=== PATIENT | female | born 1975 | race Caucasian/White ===

== ENCOUNTER → 2019-10-10 14:28 | Outpatient (CLI) | payer MEDICAID, SELFPAY ==
[2019-10-10 13:42] VITALS: BMI 29.7
[2019-10-10 15:39] LABS: Absolute Lymphocyte Count 2.81 X10^3/uL (0.83-4.51); Absolute Neutrophil Count 4.4 X10^3/uL (2.0-7.7); Basophil# 0.07 X10^3/uL; Basophil% 0.9 % (0-1); Eosinophil# 0.12 X10^3/uL; Eosinophils% 1.5 % (0-5); Hematocrit 44.8 % (37-47); Hemoglobin 14.7 g/dL (12.0-15.0); Lymphocyte # 2.81 X10^3/ul (4.0); Lymphocyte % 34.8 % (19-41); Mean Corp Hgb Conc 32.8 g/dL (32-36); Mean Corpuscular Hgb 29.3 pg (27.0-32.0); Mean Corpuscular Volume 89.4 fL (81-99); Mean Platelet Vol. 9.4 fl (6.2-12.0); Monocyte# 0.72 X10^3/uL; Monocyte% 8.9 % (0-10); NRBC Flagged by Analyzer 0 % (0-5); Neutrophil # 4.35 X10^3/uL (2.7-7.7); Neutrophil % 53.8 % (47-70); Platelet Count 314 K/mm3 (150-450); RBC Distribution Width CV 13.2 % (11.6-14.6); RBC Distribution Width SD 43.4 fl (35.1-43.9); Red Blood Count 5.01 M/mm3 (4.2-5.4); White Blood Count 8.1 K/mm3 (4.4-11.0)
[2019-10-10 15:58] LABS: AST(SGOT) 13 U/L (15-37); Alanine Aminotransfer ALT/SGPT 22 U/L (13-56); Albumin, Serum 4.2 g/dL (3.2-5.0); Alkaline Phosphatase 73 U/L (45-117); Anion Gap 6 (5-15); BUN 9 mg/dL (7-18); BUN/Creat Ratio 11.5 RATIO (10-20); Chloride 105 mmol/L (98-107); Cholesterol 250 mg/dL (200); Creatinine, Serum 0.78 mg/dL (0.55-1.02); EST Glomerular Filtration Rate 85 mL/min (>60); Est Glom Filt Rate - Afr Amer 103 mL/min (>60); Glucose 98 mg/dL (74-106); High Density Lipoprotein 57 mg/dL; Potassium 3.8 mmol/L (3.5-5.1); Protein, Total 8.2 g/dL (6.4-8.2); Sodium Level 137 mmol/L (136-145); Triglycerides 76 mg/dL; Very Low Density Lipoprotein 15 mg/dL (5-40)
== END ==
LOC: EPLAB 14:28 → BIMLAB 10-15 12:24
PROVIDERS: PCP Internal Medicine; Visit Provider Internal Medicine
DX: Z00.00 Encounter for general adult medical examination without abnormal findings (principal)
CPT/HCPCS: 36415; 80053; 80061; 85025

== ENCOUNTER → 2019-10-16 10:45 | Outpatient (CLI) | payer MEDICAID, SELFPAY ==
[2019-10-10 13:42] VITALS: BMI 29.7
--- NOTE | 2019-10-16 10:46 | BI_ITS ---
MAMMOGRAPHY - BILATERAL SCREENING REASON FOR EXAM: Female, 44 years old. Routine annual screening examination. PERTINENT HISTORY: Non-contributory. TECHNIQUE: Digital bilateral breast stephen (3D mammographic acquisition) in the CC and MLO projections. 2-D mediolateral oblique (MLO) and craniocaudad (CC) views of both breasts were obtained. CAD: Full Field Digital Mammography with Computer Added Detection was performed. COMPARISON: Comparison is made with prior outside examination dated May 14, 2017. FINDINGS: Breast Composition: The breasts are almost entirely fatty. There are no dominant masses or suspicious calcifications. No other significant abnormalities are identified. There has been no significant change since the prior study. BI/SCREEN MAMM (CAD) W/STEPHEN BILAT IMPRESSION: Stable bilateral screening mammogram. Yearly follow-up mammogram recommended. (A) ASSESSMENT CATEGORY: BIRADS Category 1: Negative. A letter regarding these results will be sent to the patient by the facility within 30 days. Approximately 10% of breast cancers are not detected by mammography. A normal mammogram should not delay biopsy of a clinically suspicious abnormality. [id number] Electronically Signed: Yoseph Michaels, at 11:16 EDT , Service support ,
== END ==
PROVIDERS: PCP Internal Medicine; Referring Provider Internal Medicine; Visit Provider Internal Medicine
DX: Z12.31 Encounter for screening mammogram for malignant neoplasm of breast (principal)
CPT/HCPCS: 77063; 77067

== ENCOUNTER → 2020-02-09 10:42 | Outpatient (CLI) | payer MEDICAID, SELFPAY ==
[2020-02-09 10:32] VITALS: BMI 29.7
[2020-02-09 13:11] LABS: T4 Free Direct 1.16 ng/dL (0.76-1.46); Thyroid Stim Hormone (TSH) 1.54 uIU/mL (0.358-3.74)
== END ==
PROVIDERS: PCP Internal Medicine; Referring Provider Internal Medicine; Visit Provider Internal Medicine
DX: E78.5 Hyperlipidemia, unspecified (principal)
CPT/HCPCS: 36415; 84439; 84443

== ENCOUNTER → 2020-03-01 17:09 | Outpatient (CLI) | payer MEDICAID, SELFPAY ==
[2020-03-01 15:26] VITALS: BMI 29.7
[2020-03-05 13:55] LABS: HPV APTIMA, High Risk Negative (Negative)
== END ==
PROVIDERS: PCP Internal Medicine; Referring Provider Obstetrics & Gynecology; Visit Provider Obstetrics & Gynecology
DX: Z12.4 Encounter for screening for malignant neoplasm of cervix (principal)
CPT/HCPCS: 87624; 88175; G0145

== ENCOUNTER → 2020-11-01 09:54 | Outpatient (CLI) | payer MEDICAID, SELFPAY ==
[2020-03-01 15:26] VITALS: BMI 29.7
--- NOTE | 2020-11-01 09:57 | BI_ITS ---
MAMMOGRAPHY - BILATERAL SCREENING REASON FOR EXAM: Female, 45 years old. Routine annual screening examination. PERTINENT HISTORY: Non-contributory. TECHNIQUE: Digital bilateral breast stephen (3D mammographic acquisition) in the CC and MLO projections. 2-D mediolateral oblique (MLO) and craniocaudad (CC) views of both breasts were obtained. CAD: Full Field Digital Mammography with Computer Added Detection was performed. COMPARISON: Comparison is made with prior study dated 10/16/2019. FINDINGS: Breast Composition: There are scattered areas of fibroglandular density. There are no dominant masses or suspicious calcifications. Stable benign-appearing bilateral axillary lymph nodes. No other significant abnormalities are identified. There has been no significant change since the prior study. BI/SCRN MAMM (CAD)W/STEPHEN BILAT IMPRESSION: Stable bilateral screening mammogram. Yearly follow-up mammogram recommended. (A) ASSESSMENT CATEGORY: BIRADS Category 2: Benign. A letter regarding these results will be sent to the patient by the facility within 30 days. Approximately 10% of breast cancers are not detected by mammography. A normal mammogram should not delay biopsy of a clinically suspicious abnormality. [id number] Electronically Signed: Yoseph Michaels MD at 11:15 EDT , Service support ,
== END ==
PROVIDERS: PCP Internal Medicine; Referring Provider Internal Medicine; Visit Provider Internal Medicine
DX: Z12.31 Encounter for screening mammogram for malignant neoplasm of breast (principal)
CPT/HCPCS: 77063; 77067

== ENCOUNTER → 2021-02-07 09:21 | Outpatient (CLI) | payer MEDICAID, SELFPAY ==
[2021-02-07 08:56] VITALS: BMI 29.7
[2021-02-07 12:18] LABS: Absolute Lymphocyte Count 2.25 X10^3/uL (0.83-4.51); Absolute Neutrophil Count 6.2 X10^3/uL (2.0-7.7); Basophil# 0.11 X10^3/uL; Basophil% 1.1 % (0-1); Eosinophil# 0.29 X10^3/uL; Hematocrit 43.3 % (37-47); Hemoglobin 14.2 g/dL (12.0-15.0); Lymphocyte # 2.25 X10^3/ul (0.83-4.51); Lymphocyte % 23.1 % (19-41); Mean Corp Hgb Conc 32.8 g/dL (32-36); Mean Corpuscular Hgb 29.2 pg (27.0-32.0); Mean Corpuscular Volume 88.9 fL (81-99); Monocyte# 0.92 X10^3/uL; Monocyte% 9.4 % (0-10); NRBC Flagged by Analyzer 0 % (0-5); Neutrophil # 6.15 X10^3/uL (2.7-7.7); Neutrophil % 63.2 % (47-70); Platelet Count 337 K/mm3 (150-450); RBC Distribution Width CV 13.9 % (11.6-14.6); RBC Distribution Width SD 45.4 fl (35.1-43.9); Red Blood Count 4.87 M/mm3 (4.2-5.4); White Blood Count 9.7 K/mm3 (4.4-11.0)
[2021-02-07 12:50] LABS: ALB/GLOB Ratio 0.9 RATIO (0.9-2.4); AST(SGOT) 16 U/L (15-37); Alanine Aminotransfer ALT/SGPT 22 U/L (13-56); Albumin, Serum 3.6 g/dL (3.2-5.0); Alkaline Phosphatase 76 U/L (45-117); Anion Gap 5 (5-15); BUN 14 mg/dL (7-18); BUN/Creat Ratio 17.6 RATIO (10-20); Calcium,Total 8.7 mg/dL (8.5-10.1); Chloride 107 mmol/L (98-107); Cholesterol 224 mg/dL (200); Creatinine, Serum 0.79 mg/dL (0.55-1.02); EST Glomerular Filtration Rate 83 mL/min (>60); Est Glom Filt Rate - Afr Amer 100 mL/min (>60); Glucose 92 mg/dL (74-106); High Density Lipoprotein 53 mg/dL; Potassium 3.9 mmol/L (3.5-5.1); Protein, Total 7.6 g/dL (6.4-8.2); Sodium Level 138 mmol/L (136-145); Triglycerides 201 mg/dL; Very Low Density Lipoprotein 40 mg/dL (5-40)
== END ==
PROVIDERS: PCP Internal Medicine; Referring Provider Internal Medicine; Visit Provider Internal Medicine
DX: E78.5 Hyperlipidemia, unspecified (principal); I10 Essential (primary) hypertension
CPT/HCPCS: 36415; 80053; 80061; 85025

== ENCOUNTER 2021-03-15 10:30 | Outpatient (RCR) | payer MEDICAID, SELFPAY ==
[2021-02-07 08:56] VITALS: BMI 29.7
== END 2021-03-15 23:59 ==
LOC: NS 10:30
PROVIDERS: PCP Internal Medicine; Visit Provider Internal Medicine
DX: Z71.3 Dietary counseling and surveillance (principal); E66.3 Overweight; Z68.29 Body mass index [BMI] 29.0-29.9, adult
CPT/HCPCS: 97802; 97803

== ENCOUNTER 2021-03-29 11:27 | Outpatient (RCR) | payer MEDICAID, SELFPAY ==
[2021-03-16 00:42] VITALS: BMI 29.7
== END 2021-04-14 23:59 ==
LOC: NS 11:27
PROVIDERS: PCP Internal Medicine; Visit Provider Internal Medicine
DX: Z71.3 Dietary counseling and surveillance (principal); E66.3 Overweight; Z68.29 Body mass index [BMI] 29.0-29.9, adult
CPT/HCPCS: 97803

== ENCOUNTER → 2021-12-05 | Outpatient (CLI) | payer MEDICAID, SELFPAY ==
[2021-12-05 12:43] LABS: Absolute Lymphocyte Count 2.38 X10^3/uL (0.83-4.51); Absolute Neutrophil Count 4.3 X10^3/uL (2.0-7.7); Basophil# 0.07 X10^3/uL; Basophil% 0.9 % (0-1); Eosinophil# 0.18 X10^3/uL; Eosinophils% 2.4 % (0-5); Hematocrit 42.8 % (37-47); Hemoglobin 14.1 g/dL (12.0-15.0); Lymphocyte # 2.38 X10^3/ul (0.83-4.51); Lymphocyte % 31.2 % (19-41); Mean Corp Hgb Conc 32.9 g/dL (32-36); Mean Corpuscular Hgb 30.1 pg (27.0-32.0); Mean Corpuscular Volume 91.3 fL (81-99); Mean Platelet Vol. 9.9 fl (6.2-12.0); Monocyte# 0.66 X10^3/uL; Monocyte% 8.6 % (0-10); NRBC Flagged by Analyzer 0 % (0-5); Neutrophil # 4.33 X10^3/uL (2.7-7.7); Neutrophil % 56.6 % (47-70); Platelet Count 344 K/mm3 (150-450); RBC Distribution Width CV 13.8 % (11.6-14.6); RBC Distribution Width SD 46.8 fl (35.1-43.9); Red Blood Count 4.69 M/mm3 (4.2-5.4); White Blood Count 7.6 K/mm3 (4.4-11.0)
[2021-12-05 13:00] LABS: AST(SGOT) 14 U/L (15-37); Alanine Aminotransfer ALT/SGPT 22 U/L (13-56); Albumin, Serum 3.7 g/dL (3.2-5.0); Alkaline Phosphatase 66 U/L (45-117); BUN 12 mg/dL (7-18); BUN/Creat Ratio 17.3 RATIO (10-20); Calcium,Total 8.5 mg/dL (8.5-10.1); Chloride 107 mmol/L (98-107); Cholesterol 210 mg/dL (200); EST Glomerular Filtration Rate 96 mL/min (>60); Est Glom Filt Rate - Afr Amer 117 mL/min (>60); Globulin 3.7 g/dL (2.2-4.2); Glucose 93 mg/dL (74-106); Potassium 3.9 mmol/L (3.5-5.1); Protein, Total 7.4 g/dL (6.4-8.2); Sodium Level 139 mmol/L (136-145); Triglycerides 111 mg/dL
[2021-12-05 13:01] LABS: Anion Gap 3 (5-15); High Density Lipoprotein 64 mg/dL; Very Low Density Lipoprotein 22 mg/dL (5-40)
== END | disposition home or self-care (01) ==
LOC: BIMLAB 09:36
PROVIDERS: PCP Internal Medicine; Referring Provider Internal Medicine; Visit Provider Internal Medicine
DX: E78.5 Hyperlipidemia, unspecified (principal); I10 Essential (primary) hypertension
CPT/HCPCS: 36415; 80053; 80061; 85025

== ENCOUNTER → 2021-12-19 | Outpatient (CLI) | payer MEDICAID, SELFPAY ==
--- NOTE | 2021-12-19 07:58 | BI_ITS ---
MAMMOGRAPHY - BILATERAL SCREENING REASON FOR EXAM: Female, 46 years old. Routine annual screening examination. PERTINENT HISTORY: Non-contributory. TECHNIQUE: Digital bilateral breast stephen (3D mammographic acquisition) in the CC and MLO projections. 2-D mediolateral oblique (MLO) and craniocaudad (CC) views of both breasts were obtained. CAD: Full Field Digital Mammography with Computer Added Detection was performed. COMPARISON: Comparison is made with prior study dated 11/01/2020 and 10/16/2019. FINDINGS: Breast Composition: There are scattered areas of fibroglandular density. There are no dominant masses or suspicious calcifications. Stable benign-appearing bilateral axillary lymph nodes. No other significant abnormalities are identified. There has been no significant change since the prior study. BI/SCRN MAMM (CAD)W/STEPHEN BILAT IMPRESSION: Stable bilateral screening mammogram. Yearly follow-up mammogram recommended. (A) ASSESSMENT CATEGORY: BIRADS Category 2: Benign. A letter regarding these results will be sent to the patient by the facility within 30 days. Approximately 10% of breast cancers are not detected by mammography. A normal mammogram should not delay biopsy of a clinically suspicious abnormality. [id number] Electronically Signed: Yoseph Michaels MD at 9:10 EDT ,
== END | disposition home or self-care (01) ==
LOC: OPBI 07:57
PROVIDERS: PCP Internal Medicine; Visit Provider Internal Medicine
DX: Z12.31 Encounter for screening mammogram for malignant neoplasm of breast (principal)
CPT/HCPCS: 77063; 77067

== ENCOUNTER → 2022-12-06 | Outpatient (CLI) | payer MEDICAID, SELFPAY ==
[2022-12-06 12:30] LABS: Absolute Lymphocyte Count 1.93 X10^3/uL (0.83-4.51); Absolute Neutrophil Count 5.5 X10^3/uL (2.0-7.7); Basophil# 0.06 X10^3/uL; Basophil% 0.7 % (0-1); Eosinophil# 0.11 X10^3/uL; Eosinophils% 1.3 % (0-5); Hematocrit 42.2 % (37-47); Hemoglobin 13.9 g/dL (12.0-15.0); Lymphocyte # 1.93 X10^3/ul (0.83-4.51); Lymphocyte % 23.1 % (19-41); Mean Corp Hgb Conc 32.9 g/dL (32-36); Mean Corpuscular Hgb 30.2 pg (27.0-32.0); Mean Corpuscular Volume 91.5 fL (81-99); Mean Platelet Vol. 9.5 fl (6.2-12.0); Monocyte# 0.76 X10^3/uL; Monocyte% 9.1 % (0-10); NRBC Flagged by Analyzer 0 % (0-5); Neutrophil # 5.46 X10^3/uL (2.7-7.7); Neutrophil % 65.6 % (47-70); Platelet Count 320 K/mm3 (150-450); RBC Distribution Width CV 14.3 % (11.6-14.6); Red Blood Count 4.61 M/mm3 (4.2-5.4); White Blood Count 8.3 K/mm3 (4.4-11.0)
[2022-12-06 13:04] LABS: AST(SGOT) 16 U/L (15-37); Alanine Aminotransfer ALT/SGPT 20 U/L (13-56); Albumin, Serum 3.6 g/dL (3.2-5.0); Alkaline Phosphatase 58 U/L (45-117); Anion Gap 6 (5-15); BUN 14 mg/dL (7-18); BUN/Creat Ratio 19.5 RATIO (10-20); Chloride 109 mmol/L (98-107); Cholesterol 214 mg/dL (200); Creatinine, Serum 0.72 mg/dL (0.55-1.02); EST Glomerular Filtration Rate 92 mL/min (>60); Est Glom Filt Rate - Afr Amer 112 mL/min (>60); Globulin 3.7 g/dL (2.2-4.2); Glucose 84 mg/dL (74-106); High Density Lipoprotein 70 mg/dL; Potassium 4.2 mmol/L (3.5-5.1); Protein, Total 7.3 g/dL (6.4-8.2); Sodium Level 140 mmol/L (136-145); Triglycerides 66 mg/dL; Very Low Density Lipoprotein 13 mg/dL (5-40)
== END | disposition home or self-care (01) ==
LOC: BIMLAB 09:23
PROVIDERS: PCP Internal Medicine; Referring Provider Internal Medicine; Visit Provider Internal Medicine
DX: I10 Essential (primary) hypertension (principal); E78.5 Hyperlipidemia, unspecified
CPT/HCPCS: 36415; 80053; 80061; 85025

== ENCOUNTER → 2022-12-20 | Outpatient (CLI) | payer MEDICAID, SELFPAY ==
--- NOTE | 2022-12-20 08:40 | BI_ITS ---
MAMMOGRAPHY - BILATERAL SCREENING REASON FOR EXAM: Female, 47 years old. Routine annual screening examination. PERTINENT HISTORY: Non-contributory. TECHNIQUE: Digital bilateral breast stephen (3D mammographic acquisition) in the CC and MLO projections. 2-D mediolateral oblique (MLO) and craniocaudad (CC) views of both breasts were obtained. CAD: Full Field Digital Mammography with Computer Added Detection was performed. COMPARISON: Comparison is made with prior study dated December 19, 2021 and November 01, 2020. FINDINGS: Breast Composition: The breasts are almost entirely fatty. There are no dominant masses or suspicious calcifications. No other significant abnormalities are identified. There has been no significant change since the prior study. BI/SCRN MAMM (CAD)W/STEPHEN BILAT IMPRESSION: Stable bilateral screening mammogram. Yearly follow-up mammogram recommended. (A) ASSESSMENT CATEGORY: BIRADS Category 1: Negative. A letter regarding these results will be sent to the patient by the facility within 30 days. Approximately 10% of breast cancers are not detected by mammography. A normal mammogram should not delay biopsy of a clinically suspicious abnormality. [id number] Electronically Signed: Yoseph Michaels MD at 9:37 EDT ,
== END | disposition home or self-care (01) ==
PROVIDERS: PCP Internal Medicine; Referring Provider Internal Medicine; Visit Provider Internal Medicine
DX: Z12.31 Encounter for screening mammogram for malignant neoplasm of breast (principal)
CPT/HCPCS: 77063; 77067

== ENCOUNTER 2023-06-21 05:49 | Day surgery (SDC) | payer MEDICAID, SELFPAY ==
[2023-06-21 06:14] LABS: Internal QC Validated? YES +Cl - CLEAR BKGD; Pregnancy, Urine Negative Negative
[2023-06-21] MEDS: Lactated Ringers 1,000 ML 15 ML IV (06:18)
[2023-06-21 06:20] VITALS: BP 112/73; PULSE 84; RESP 18; TEMP 36.4; O2SAT 99; BMI 25.9
--- NOTE | 2023-06-21 07:02 | PCM.HP.STD ---
[facility] - General General Date of Admission: 06/21/23 Date of Service: 06/21/23 Chief Complaint: Screening colonoscopy HPI Narrative MAIDA WYATT, is a 48 F who presents today for screening colonoscopy. She has never had a colonoscopy in the past. She does not have abdominal pain. She not have any nausea, vomiting or diarrhea. She has past medical history of mild hypertension and mild hyperlipidemia. Otherwise she is in very good health. She does have a family history of colon cancer. [facility] Medical History (Updated 06/18/23 @ 09:58 by Myles Briceno) Abnormal Pap smear of cervix Colon cancer screening Essential hypertension Fracture of finger of left hand Frequent sinus infections Hyperlipidemia Overweight (BMI 25.0-29.9) Smoker Tobacco abuse Vision problems Wears glasses Home Medications loratadine 10 mg tablet 10 mg PO DAILY 09/29/19 [History Last Taken Unknown] multivitamin,[id number] (Complete Multivitamin tablet) 1 tab PO DAILY 03/01/20 [History Last Taken Unknown] Allergy/AdvReac Type Severity Reaction Status Date / Time No Known Allergies Allergy Verified 06/18/23 09:50 Family History (Updated 06/05/23 @ 13:56 by Verna Tabares) Mother Cancer lung,uterine Anxiety Depression Diabetes Hypertension CVA (cerebral vascular accident) Uterine cancer 30s Father Hypertension Grandfather Cancer Myocardial infarction Heart disease Colon cancer Surgical History H/O LEEP History of knee surgery History of tonsillectomy Social History Smoking Status: Current every day smoker tobacco type: cigarettes alcohol intake: current alcohol intake frequency: holidays/special occasions only details: socially substance use type: does not use caffeine: Yes what type of physical activity do you participate in: walking, aerobics and weight training frequency: 3-4 times per week seatbelt use: always do you feel safe at home: Yes additional social history: [employer] ROS Review of Systems ROS Unobtainable: other Constitutional Constitutional: Denies fatigue, fever(s), poor appetite, weight gain or weight loss ENT HEENT: Denies mouth lesions Cardiovascular Cardiovascular: Denies abdominal bloating, abdominal edema or abdominal pain Respiratory/Chest Respiratory/Chest: Denies change in mental status, change in phlegm color, chest congestion or chest tightness Gastrointestinal Gastrointestinal: Denies belching, bloating, change in bowel habits, change in stool character, chewing difficulty, coffee ground emesis, constipation, cramping, diarrhea, dyspepsia, dysphagia, early satiety, excessive flatus, fecal incontinence, heartburn, hematemesis, hematochezia, hemorrhoids, loose stools, melena, nausea, odynophagia, rectal bleeding, tenesmus, vomiting or weight changes Genitourinary Genitourinary: Denies abdominal discomfort, burning urination or itching Musculoskeletal Musculoskeletal: Reports as per HPI; Denies muscle weakness or myalgias Integumentary Integumentary: Denies jaundice Neurologic Neurologic: Denies lack of coordination or weakness Psychiatric Psychiatric: Denies confusion, depression, memory loss, mood swings, paranoia or suicidal ideation Endocrine Endocrinology: Denies systems reviewed and no addt'l complaints, except as documented Hematologic/Lymphatic Hematologic/Lymphatic: Denies anemia, easy bleeding, easy bruising or lymphadenopathy Allergic/Immunologic Allergic/Immunologic: Denies systems reviewed and no addt'l complaints, except as documented Vital Signs Vital Signs Vital Signs: 06/21/23 06:20 06/21/23 06:20 Temperature 97.6 F L Temperature Source Temporal Pulse Rate 84 Respiratory Rate 18 Respiratory Pattern Normal Blood Pressure 112/73 Blood Pressure Mean 86 Blood Pressure Source Monitor Blood Pressure Position Sitting Pulse Ox 99 Oxygen Delivery Method Room Air Weight Weight: 151 lb 6.4 oz Body Mass Index (BMI) 25.9 Physical Exam Const alert General Appearance: cooperative Orientation / Consciousness: oriented to person HEENT hearing grossly normal bilaterally Head and Scalp: normal to inspection Face and Sinus: face symmetric Nose: external nose normal Mouth: oral and palatal mucosa normal Eyes conjunctivae normal General Eye: normal appearance of both eyes Neck full ROM General: normal visual inspection Lymph Lymphatic: no lymphadenopathy noted Chest inspection of chest normal and palpation of chest normal Chest: symmetrical chest wall rise Resp normal respiratory effort Effort and Inspection: able to speak in complete sentences Cardio regular rate GI non-distended Percussion: normal to percussion Rectal Exam: deferred Neuro Speech: speech normal Gait (Neuro): normal gait Results Lab / Micro Data Labs: Laboratory Results - last 24 hr 06/21/23 05:58: Urine Test Negative Assessment & Plan Assessment/Plan (1) Encounter for screening for malignant neoplasm of colon: PLAN: She was explained alternatives, risk, benefits including not withstanding bleeding, infection, sepsis, perforation, need for emergent surgery and . She will have an ASA of 2.
[2023-06-21 07:40] VITALS: BP 112/73; BP 116/97; PULSE 84; RESP 16; TEMP 36.2; O2SAT 100
--- NOTE | 2023-06-21 07:42 | OP.COLON_ITS ---
Patient Name: Rosy Henley Procedure Date: 06/21/2023 7:09 AM Date of : 1975 Age: 48 Procedure: Colonoscopy Indications: Screening for colorectal malignant neoplasm Providers: Edinson Finley DO Referring MD: Edinson Finley DO Medicines: Monitored Anesthesia Care Patient Profile: This is a 48 year old female. Refer to note in patient chart for documentation of history and physical. Last Colonoscopy: none. The patient's first colonoscopy is today. Complications: No immediate complications. Procedure: Pre-Anesthesia Assessment: - Prior to the procedure, a History and Physical was performed, and patient medications and allergies were reviewed. The patient is competent. The risks and benefits of the procedure and the sedation options and risks were discussed with the patient. All questions were answered and informed consent was obtained. Patient identification and proposed procedure were verified by the physician. Mental Status Examination: normal. Prophylactic Antibiotics: The patient does not require prophylactic antibiotics. Prior Anticoagulants: The patient has taken no anticoagulant or antiplatelet agents. ASA Grade Assessment: II - A patient with mild systemic disease. After reviewing the risks and benefits, the patient was deemed in satisfactory condition to undergo the procedure. The anesthesia plan was to use monitored anesthesia care (MAC). Immediately prior to administration of medications, the patient was re-assessed for adequacy to receive sedatives. The heart rate, respiratory rate, oxygen saturations, blood pressure, adequacy of pulmonary ventilation, and response to care were monitored throughout the procedure. The physical status of the patient was re-assessed after the procedure. After I obtained informed consent, the scope was passed under direct vision. Throughout the procedure, the patient's blood pressure, pulse, and oxygen saturations were monitored continuously. The colonoscope was introduced through the anus and advanced to the cecum, identified by appendiceal orifice and ileocecal valve. The colonoscopy was performed without difficulty. The patient tolerated the procedure well. The quality of the bowel preparation was adequate. The ileocecal valve, appendiceal orifice, and rectum were photographed. Scope In: 7:21:56 AM Scope Withdrawal Time 0 hours 7 minutes 40 seconds Scope Out: 7:36:10 AM Total Procedure Duration Time 0 hours 14 minutes 14 seconds Findings: The perianal and digital rectal examinations were normal. The colon (entire examined portion) appeared normal. No additional abnormalities were found on retroflexion. Impression: - The entire examined colon is normal. - No specimens collected. Recommendation: - Discharge patient to home. - Resume previous diet. - Continue present medications. - Repeat colonoscopy in 10 years for screening purposes. Procedure Code(s): --- Professional --- G0121, Colorectal cancer screening; colonoscopy on individual not meeting criteria for high risk CPT copyright 2021 [employer]. All rights reserved. The codes documented in this report are preliminary and upon collar setter overlock review may be revised to meet current compliance requirements. Edinson Finley DO 06/21/2023 7:41:21 AM This report has been signed electronically. Number of Addenda: 0 Note Initiated On: 06/21/2023 7:09 AM
--- NOTE | 2023-06-21 07:42 | OP.CCLET_ITS ---
06/21/2023 Melisa Barfield MD [address] [place] [address] [place] [address] Re : Colonoscopy procedure for Rosy Amend Dear Dr. Barfield This procedure was performed on June. My impressions and recommendations are as follows: Impressions : - The entire examined colon is normal. - No specimens collected. Recommendations : - Discharge patient to home. - Resume previous diet. - Continue present medications. - Repeat colonoscopy in 10 years for screening purposes. My findings are described in the full procedure note, which is enclosed. If I can be of further assistance, please feel free to contact me at . Sincerely, Edinson Finley, 06/21/2023 7:41:21 AM This report has been signed electronically.
[2023-06-21 07:45] VITALS: BP 112/73; BP 113/77; PULSE 78; RESP 16; O2SAT 100
[2023-06-21 07:50] VITALS: BP 110/72; BP 112/73; PULSE 69; RESP 16; TEMP 36.1; O2SAT 100
[2023-06-21 08:04] VITALS: BP 112/73
== END 2023-06-21 08:11 | disposition home or self-care (01) ==
LOC: EN 05:50 → AC 06:08
PROVIDERS: Anesthesiology; PCP Internal Medicine; Referring Provider Internal Medicine; Visit Provider Internal Medicine Gastroenterology
PROC: 0DJD8ZZ Inspection of Lower Intestinal Tract, Via Natural or Artificial Opening Endoscopic (ICD-10-PCS; CPT 45378; principal; 2023-06-21 06:55)
DX: Z12.11 Encounter for screening for malignant neoplasm of colon (principal); I10 Essential (primary) hypertension; E78.5 Hyperlipidemia, unspecified; F17.210 Nicotine dependence, cigarettes, uncomplicated; Z80.0 Family history of malignant neoplasm of digestive organs
CPT/HCPCS: G0121; 81025; J7120

== ENCOUNTER → 2024-02-01 | Outpatient (CLI) | payer MEDICAID, SELFPAY ==
[2024-02-01 12:24] LABS: Absolute Lymphocyte Count 3.49 X10^3/uL (0.83-4.51); Absolute Neutrophil Count 3.9 X10^3/uL (2.0-7.7); Basophil# 0.09 X10^3/uL; Basophil% 1.1 % (0-1); Eosinophil# 0.13 X10^3/uL; Eosinophils% 1.6 % (0-5); Hematocrit 44.3 % (37-47); Hemoglobin 14.6 g/dL (12.0-15.0); Lymphocyte # 3.49 X10^3/ul (0.83-4.51); Mean Corpuscular Hgb 29.3 pg (27.0-32.0); Mean Platelet Vol. 9.8 fl (6.2-12.0); Monocyte# 0.72 X10^3/uL; Monocyte% 8.7 % (0-10); NRBC Flagged by Analyzer 0 % (0-5); Neutrophil # 3.86 X10^3/uL (2.7-7.7); Neutrophil % 46.4 % (47-70); Platelet Count 319 K/mm3 (150-450); RBC Distribution Width CV 13.9 % (11.6-14.6); RBC Distribution Width SD 45.1 fl (35.1-43.9); Red Blood Count 4.98 M/mm3 (4.2-5.4); White Blood Count 8.3 K/mm3 (4.4-11.0)
[2024-02-01 12:37] LABS: ALB/GLOB Ratio 0.9 RATIO (0.9-2.4); AST(SGOT) 27 U/L (15-37); Alanine Aminotransfer ALT/SGPT 36 U/L (13-56); Albumin, Serum 3.7 g/dL (3.2-5.0); Alkaline Phosphatase 79 U/L (45-117); Anion Gap 7 (5-15); BUN 14 mg/dL (7-18); BUN/Creat Ratio 18.1 RATIO (10-20); Calcium,Total 9.2 mg/dL (8.5-10.1); Chloride 106 mmol/L (98-107); Cholesterol 228 mg/dL (200); Creatinine, Serum 0.77 mg/dL (0.55-1.02); EST Glomerular Filtration Rate 85 mL/min (>60); Est Glom Filt Rate - Afr Amer 102 mL/min (>60); Globulin 4.3 g/dL (2.2-4.2); Glucose 95 mg/dL (74-106); High Density Lipoprotein 69 mg/dL; Potassium 4.1 mmol/L (3.5-5.1); Sodium Level 140 mmol/L (136-145); Triglycerides 132 mg/dL; Very Low Density Lipoprotein 26 mg/dL (5-40)
== END | disposition home or self-care (01) ==
LOC: BIMLAB 10:35
PROVIDERS: PCP Internal Medicine; Referring Provider Internal Medicine; Visit Provider Internal Medicine
DX: Z00.00 Encounter for general adult medical examination without abnormal findings (principal)
CPT/HCPCS: 36415; 80053; 80061; 85025

== ENCOUNTER → 2024-02-14 | Outpatient (CLI) | payer MEDICAID, SELFPAY ==
--- NOTE | 2024-02-14 08:12 | BI_ITS ---
MAMMOGRAPHY - BILATERAL SCREENING REASON FOR EXAM: Female, 48 years old. Routine annual screening examination. PERTINENT HISTORY: Non-contributory. TECHNIQUE: Digital bilateral breast stephen (3D mammographic acquisition) in the CC and MLO projections. 2-D mediolateral oblique (MLO) and craniocaudad (CC) views of both breasts were obtained. CAD: Full Field Digital Mammography with Computer Added Detection was performed. COMPARISON: Comparison is made with prior study of December 20, 2022 and December 19, 2021. FINDINGS: Breast Composition: The breasts are almost entirely fatty. There are no dominant masses or suspicious calcifications. Stable fat-containing bilateral axillary lymph nodes. No other significant abnormalities are identified. There has been no significant change since the prior study. BI/SCRN MAMM (CAD)W/STEPHEN BILAT IMPRESSION: Stable bilateral screening mammogram. Yearly follow-up mammogram recommended. (A) ASSESSMENT CATEGORY: BIRADS Category 2: Benign. A letter regarding these results will be sent to the patient by the facility within 30 days. Approximately 10% of breast cancers are not detected by mammography. A normal mammogram should not delay biopsy of a clinically suspicious abnormality. [id number] Electronically Signed: Yoseph Michaels MD at 9:34 EDT ,
== END | disposition home or self-care (01) ==
LOC: OPBI 08:12
PROVIDERS: PCP Internal Medicine; Referring Provider Internal Medicine; Visit Provider Internal Medicine
DX: Z12.31 Encounter for screening mammogram for malignant neoplasm of breast (principal)
CPT/HCPCS: 77063; 77067

== ENCOUNTER → 2025-02-10 | Outpatient (CLI) | payer OTHER, MEDICAID, SELFPAY ==
[2025-02-13 16:09] LABS: HPV APTIMA, High Risk Negative (Negative)
== END | disposition home or self-care (01) ==
LOC: LABSPEC 15:41
PROVIDERS: PCP Internal Medicine; Visit Provider Nurse Practitioner Women's Health
DX: Z12.4 Encounter for screening for malignant neoplasm of cervix (principal)
CPT/HCPCS: 87624; 88175; G0145

== ENCOUNTER → 2025-02-16 | Outpatient (CLI) | payer OTHER, MEDICAID, SELFPAY ==
--- NOTE | 2025-02-16 14:45 | BI_ITS ---
EXAM: SCRN MAMM (CAD)W/STEPHEN BILAT DATE: 02/16/2025 CLINICAL HISTORY: F, Age 49 y/o , SCREEN FOR BREAST CANCER TECHNIQUE: SCRN MAMM (CAD)W/STEPHEN BILAT COMPARISON: Prior exam(s) were compared FINDINGS: TISSUE DENSITY: The breasts are heterogeneously dense, which may obscure small masses. Bilateral Breast Mammographic Findings: No suspicious masses, calcifications or other abnormalities are identified. BI/SCRN MAMM (CAD)W/STEPHEN BILAT IMPRESSION: No mammographic evidence of malignancy in either breast. OVERALL FINAL ASSESSMENT BI-RADS 1: NEGATIVE. RECOMMENDATION: Routine annual follow-up in 1 Year A letter with findings and recommendations will be mailed to the patient. Reading Location: [id number]
== END | disposition home or self-care (01) ==
PROVIDERS: PCP Internal Medicine; Referring Provider Nurse Practitioner Women's Health; Visit Provider Nurse Practitioner Women's Health
DX: Z12.31 Encounter for screening mammogram for malignant neoplasm of breast (principal)
CPT/HCPCS: 77063; 77067

== ENCOUNTER → 2025-02-18 | Outpatient (CLI) | payer OTHER, MEDICAID, SELFPAY ==
[2025-02-18 15:38] LABS: Hematocrit 40.3 % (37-47); Hemoglobin 13.2 g/dL (12.0-15.0); Immature Granulocytes Count 0.020 X10^3/uL (0.0-0.0); Mean Corp Hgb Conc 32.8 g/dL (32-36); Mean Corpuscular Volume 90.6 fL (81-99); Mean Platelet Vol. 9.6 fl (6.2-12.0); NRBC Flagged by Analyzer 0 % (0-5); Platelet Count 308 K/mm3 (150-450); RBC Distribution Width CV 13.4 % (11.6-14.6); RBC Distribution Width SD 44.9 fl (35.1-43.9); Red Blood Count 4.45 M/mm3 (4.2-5.4); White Blood Count 9.3 K/mm3 (4.4-11.0)
[2025-02-18 16:02] LABS: AST(SGOT) 19 U/L (<=31); Alanine Aminotransfer ALT/SGPT 21 U/L (<=34); Albumin, Serum 4.3 g/dL (3.5-5.0); Alkaline Phosphatase 60 U/L (35-104); Anion Gap 12 (5-15); BUN 12 mg/dL (4-19); BUN/Creat Ratio 16.2 RATIO (10-20); Calcium,Total 9.6 mg/dL (7.6-11.0); Carbon Dioxide 25.4 mmol/L (21.0-32.0); Chloride 102 mmol/L (98-108); Cholesterol 217 mg/dL (<=200); Globulin 3.0 g/dL (2.2-4.2); Glucose 92 mg/dL (70-99); Low Density Lipoprotein Calc. 126 mg/dL; Potassium 4.2 mmol/L (3.3-5.1); Triglycerides 92 mg/dL; Very Low Density Lipoprotein 18 mg/dL (5-40); cholesterol:hdl ratio screen 2.97
--- OUTSIDE RECORDS SUMMARY | 2025-02-18 17:06 | XMS RPT_ITS | CCD ---
Author Organization [facility] Care Team Providers Care Branch Sales And Service Representative Name Role Phone Provider, External Unavailable [phone] Melisa Barfield Primary Care Provider Janette Redd Unavailable Unavailable Marlo Cat Unavailable Dr. Melisa Barfield Primary Care Provider [phone] Dr. Melisa Barfield Attending Provider [phone] Dr. Melisa Barfield Referring Provider [phone] Dr. Melisa Barfield Primary Care Provider [phone] Dr. Melisa Barfield Attending Provider [phone] Dr. Melisa Barfield Referring Provider [phone] Dr. Melisa Barfield Primary Care Provider [phone] Verna Tabares Attending Provider Unavailable Dr. Melisa Barfield Referring Provider [phone] Dr. Edinson Finley Attending Provider [phone] Dr. Edinson Finley Other Provider Dr. Melisa Barfield MD Primary Care Provider Dr. Melisa Barfield MD Referring Provider [phone] Radha PINEAPPLE PLANTATION MANAGER-CMalissa Attending Provider [phone] Ninoska CHOI-CMariam Attending Provider Melisa Barfield Referring Unavailable Melisa Barfield Primary Care Unavailable Mariam Xiao Attending Unavailable Melisa Barfield Referring Unavailable Melisa Barfield Primary Care Unavailable RadhaMalissa Attending Unavailable Lio Barfieldjuditgildardo Primary Care Unavailable Mariam Xiao Referring Unavailable Mariam Xiao Attending Unavailable Melisa Barfield Primary Care Unavailable Mariam Xiao Attending Unavailable Ninoska PINEAPPLE PLANTATION MANAGERNorbertoCMariam Referring Provider Carolyne BERNAL, Dr. Vincent Attending Provider Medications Current Medications Medication Drug Class(es) Dates Sig (Normalized) Sig (Original) loratadine 10 mg oral tablet (9 sources) Start: 09-29-2019 take 1 tablet by mouth once daily Loratadine 10 mg tablet Active 10 mg PO DAILY September 29, 2019 12:00am multivitamin,tx-iro n-minerals (5 sources) Start: 03-01-2020 take 1 tablet by mouth once daily multivitamin,tx-ir on-minerals Active 1 TABLET PO DAILY March 01, 2020 3:23pm Start: 03-01-2020 take 1 tablet by kenji th once daily multivitamin,md-nmvz-mviqhpxo Active 1 T ABLET PO DAILY February 29, 2020 11:00pm Start: 03-01-2020 take 1 tablet by kenji th once daily multivitamin,hw-wuae-hfkjnfpe Active 1 T ABLET PO DAILY March 01, 2020 12:00am Multivitamin,Mo-Avwy-Biigssb s (Complete Multivitamin) tablet (4 sources) Start: 03-01-2020 Multivitamin,Zs-Dmzm-Vetftxn s (Complete Multivitamin) tablet Active 1 {tbl} PO DAILY March 01, 2020 12:00am Completed/Discontinued Medications Medication Drug Class(es) Dates Sig (Normalized) Sig (Original) smoking cessation 12 hr buPROPion hydrochloride 150 mg extended release oral tablet (3 sources) Aminoketone Start: 12-22-2024 End: 02-10-2025 take 1 tablet by mouth twice daily Bupropion Hcl (Smoking Deter) 150 mg tablet extended release 12 hr Discontinued 150 mg PO TWICE A DAY 60 0 December 22, 2024 12:00am February 10, 2025 3:16pm Tobacco abuse Cigarette nicotine dependence with withdrawal Tobacco use Nicotine dependence, cigarettes, with withdrawal Start with 1 tab daily for 3 days, then increase to twice a day. Magnesium (4 sources) Start: 02-01-2024 End: 12-22-2024 take 1 tablet by mouth once daily as needed Magnesium 200 mg tablet Discontinued 200 mg PO DAILY as needed February 01, 2024 12:00am December 22, 2024 2:49pm Nicotine (9 sources) Cholinergic Nicotinic Agonist Start: 10-10-2019 End: 02-09-2020 apply 1 dose transdermal route every twenty-four hours Nicotine Discontinued 1 PATCH TD Q24H 56 October 10, 2019 2:20pm February 09, 2020 10:29am Start: 10-10-2019 End: 02-09-2020 Nicotine 21-14-7 mg/24 hr pa tch, TD daily, sequential Discontinued 1 NMA TD Q24H 56 0 October 10, 2019 12:00am February 09, 2020 10:29am Start: 10-10-2019 End: 02-09-2020 Nicotine 21-14-7 mg/24 hr pa tch, TD daily, sequential Discontinued 1 NMA TD Q24H 56 October 10, 2019 12:00am February 09, 2020 10:29am Start: 10-10-2019 End: 02-09-2020 apply 1 dose transdermal route every twenty-four hours Nicotine Discontinued 1 PATCH TD Q24H 56 October 09, 2019 11:00pm February 09, 2020 9:29am Start: 10-10-2019 End: 02-09-2020 apply 1 dose transdermal route every twenty-four hours Nicotine Discontinued 1 PATCH TD Q24H 56 October 10, 2019 12:00am February 09, 2020 10:29am Problems Problem Classification Problem Date Documented Da te Episodic/Chronic Blindness and vision defects (9 sources) Disorder of vision; Translations: [Unspecified visual loss] 11-05-2021 Chronic Disorders of lipid metabolism (11 sources) Hyperlipidemia; Translations: [Hyperlipidemia, unspecified] Chronic Essential hypertension (13 sources) Essential hypertension; Translations: [Essential (primary) hypertension] Chronic Fracture of upper limb (9 sources) Fracture of phalanx of finger; Translations: [Fracture of unspecified phalanx of unspecified finger, initial encounter for closed fracture] 11-05-2021 Episodic Menopausal disorders (5 sources) Menopausal syndrome; Translations: [Menopausal and female climacteric states] 01-31-2023 Chronic Other nutritional; endocrine; and metabolic disorders (9 sources) Body mass index 25-29 - overweight; Translations: [Overweight] 05-09-2021 Episodic Other screening for suspected conditions (not mental disorders or infectious disease) (9 sources) Patient encounter status; Translations: [Encounter for screening for malignant neoplasm of colon] Onset: 02-10-2025 12-06-2022 Episodic Other skin disorders (4 sources) Lesion of skin of face; Translations: [Disorder of the skin and subcutaneous tissue, unspecified] 08-06-2023 Episodic Residual codes; unclassified (1 source) Family history of malignant neoplasm of uterus; Translations: [Family history of uterine cancer] Episodic Residual codes; unclassified (9 sources) Family history of cancer of colon; Translations: [Family history of malignant neoplasm of digestive organs] 05-13-2020 Episodic Comment on above: Negative genetic jose ting Residual codes; unclassified (13 sources) Tobacco user; Translations: [Tobacco use] 05-09-2021 Episodic Comment on above: quit 12/2024 Residual codes; unclassified (2 sources) Tobacco use; Translations: [Tobacco use disorder] Episodic Substance-related disorders (8 sources) Tobacco dependence caused by cigarettes; Translations: [Nicotine dependence, cigarettes, with withdrawal] 12-22-2024 Chronic Results Test Name Value Interpretation Reference Range Facility Absolute lymphocyte countOrd ered By: Melisa Barfield on 02-18-2025 Lymphocytes Auto (Unsp spec) [#/Vol] 3.93 10*3/uL 0.83-4.51 [facility] Absolute neutrophil countOrd ered By: Melisa Barfield on 02-18-2025 Neutrophils (Bld) [#/Vol] 4.4 10*3/uL 2.0-7.7 [facility] Anion gap in Serum or Plasma Ordered By: Melisa Barfield on 02-18-2025 Anion gap [Moles/Vol] 12 mmol/L 5-15 [facility] Automated lymphocyte count a s percentage of total leukocytesOrdered By: Melisa Barfield on 02-18-2025 Lymphocytes/100 WBC Auto (Unsp spec) 42.5 % High 19-41 [facility] BUN/creatinine ratioOrdered By: Melisa Barfield on 02-18-2025 Urea nitrogen/Creatinine [Mass ratio] 16.2 mg/mg 10-20 [facility] Basophil percentageOrdered B y: Melisa Barfield on 02-18-2025 Basophils/100 WBC (Bld) 1.0 % 0-1 [facility] Bilirubin, totalOrdered By: Melisa Barfield on 02-18-2025 Bilirubin [Mass/Vol] 0.47 mg/dL 0.00-1.30 [facility] Calculated very low density lipoprotein (VLDL) cholesterol measurementOrdered By: Melisa Barfield on 02-18-2025 Calculated very low density lipoprotein (VLDL) cholesterol measurement 18 mg/dL 5-40 [facility] Carbon dioxide, total [Moles /volume] in Central venous bloodOrdered By: Melisa Barfield on 02-18-2025 CO2 [Moles/Vol] 25.4 mmol/L 21.0-32.0 [facility] Chloride assayOrdered By: Lio Barfield on 02-18-2025 Chloride [Moles/Vol] 102 mmol/L 98-108 [facility] Eosinophil percentageOrdered By: Melisa Barfield on 02-18-2025 Eosinophils/100 WBC (Bld) 0.9 % 0-5 [facility] Erythrocyte distribution wid th ratioOrdered By: Melisa Barfield on 02-18-2025 Erythrocyte distribution width (RBC) [Ratio] 13.4 % 11.6-14.6 [facility] Erythrocyte distribution wid th standard deviationOrdered By: Melisa Barfield on 02-18-2025 Erythrocyte distribution width (RBC) [Ratio] 44.9 fl High 35.1-43.9 [facility] Glomerular filtration rate ( GFR) estimation/1.73 sq m using serum, plasma, or whole bOrdered By: Melisa Barfield on 02-18-2025 GFR/1.73 sq M.predicted among non-blacks MDRD (S/P/Bld) [Vol rate/Area] 99 mL/min/{1.73_m2} >60 [facility] Comment on above: mL/min/1.73m2 CKD-EP I Creatinine Equation (2020) Hematocrit Auto (Bld) [Volum e fraction]Ordered By: Melisa Barfield on 02-18-2025 Hematocrit (Bld) [Volume fraction] 40.3 % 37-47 [facility] Hemoglobin measurementOrdere d By: Melisa Barfield on 02-18-2025 Hemoglobin (Bld) [Mass/Vol] 13.2 g/dL 12.0-15.0 [facility] Immature granulocytes/100 WB C Auto (Bld)Ordered By: Melisa Barfield on 02-18-2025 Immature granulocytes/100 WBC (Bld) 0.200 % 0.0-0.9 [facility] Comment on above: IG% - Immature Granu locytes (promyelocytes, myelocytes and metamyelocytes) > 1% indicates that a LEFT SHIFT is Present. LDL calc ser/plasOrdered By: Melisa Barfield on 02-18-2025 Cholesterol in LDL [Mass/Vol] 126 mg/dL [facility] Comment on above: Wmdtfwmthy=159-654 m g/dL & Higher Nkpg=299 mg/dL or greaterFriedwald Equation for LDL-C Laboratory - Chemistry and C hemistry - challengeOrdered By: Melisa Barfield on 02-18-2025 AST [Catalytic activity/Vol] 19 U/L <32 [facility] MCV (mean corpuscular volume ) determinationOrdered By: Melisa Barfield on 02-18-2025 MCV (RBC) [Entitic vol] 90.6 fL 81-99 [facility] Mean corpuscular hemoglobin (MCH) determinationOrdered By: Melisa Barfield on 02-18-2025 MCH (RBC) [Entitic mass] 29.7 pg 27.0-32.0 [facility] Mean corpuscular hemoglobin concentration (MCHC) determinationOrdered By: Melisa Barfield on 02-18-2025 MCHC (RBC) [Mass/Vol] 32.8 g/dL 32-36 [facility] Mean platelet volume determi nationOrdered By: Melisa Barfield on 02-18-2025 Platelet mean volume (Bld) [Entitic vol] 9.6 fL 6.2-12.0 [facility] Monocyte percentageOrdered B y: Melisa Barfield on 02-18-2025 Monocytes/100 WBC (Bld) 7.7 % 0-10 [facility] Neutrophil percentageOrdered By: Melisa Barfield on 02-18-2025 Neutrophils/100 WBC (Bld) 47.7 % 47-70 [facility] Nucleated red blood cell per centageOrdered By: Melisa Barfield on 02-18-2025 Nucleated RBC/100 WBC (Bld) [Ratio] 0 % 0-5 [facility] Platelet countOrdered By: Lio Barfield on 02-18-2025 Platelets (Bld) [#/Vol] 308 10*3/uL 150-450 [facility] Potassium measurement (mass/ volume)Ordered By: Melisa Barfield on 02-18-2025 Potassium (Unsp spec) [Mass/Vol] 4.2 mmol/L 3.3-5.1 [facility] RBC Auto (Bld) [#/Vol]Ordere d By: Melisa Barfield on 02-18-2025 RBC (Bld) [#/Vol] 4.45 10*6/uL 4.2-5.4 [facility] Screening total cholesterol/ high density lipoprotein (HDL) cholesterol ratioOrdered By: Melisa Barfield on 02-18-2025 Cholesterol.total/Choles terol in HDL [Mass ratio] 2.97 {ratio} [facility] Serum creatinine measurement (mass/volume)Ordered By: Melisa Barfield on 02-18-2025 Creatinine [Mass/Vol] 0.74 mg/dL 0.70-1.20 [facility] Serum globulin measurementOr dered By: Melisa Barfield on 02-18-2025 Globulin (S) [Mass/Vol] 3.0 g/dL 2.2-4.2 [facility] Serum glucose measurement (m ass/volume)Ordered By: Melisa Barfield on 02-18-2025 Glucose [Mass/Vol] 92 mg/dL 70-99 [facility] Serum or plasma alanine zayas otransferase (ALT) measurementOrdered By: Melisa Barifeld on 02-18-2025 ALT [Catalytic activity/Vol] 21 U/L <35 [facility] Serum or plasma albumin shannon urement (mass/volume)Ordered By: Melisa Barfield on 02-18-2025 Albumin [Mass/Vol] 4.3 g/dL 3.5-5.0 [facility] Serum or plasma albumin/glob ulin mass ratioOrdered By: Melisa Barfield on 02-18-2025 Albumin/Globulin [Mass ratio] 1.4 {ratio} 0.9-2.4 [facility] Serum or plasma alkaline ryan sphatase measurementOrdered By: Melisa Barfield on 02-18-2025 ALP [Catalytic activity/Vol] 60 U/L 35-104 [facility] Serum or plasma calcium shannon urement (mass/volume)Ordered By: Melisa Barfield 02-18-2025 Calcium [Mass/Vol] 9.6 mg/dL 7.6-11.0 [facility] Serum or plasma cholesterol in HDL measurement (mass/volume)Ordered By: Melisa Barfield on 02-18-2025 Cholesterol in HDL [Mass/Vol] 73 mg/dL >40 [facility] Comment on above: National Cholesterol Education Program (NCEP) guidelines:<40 mg/dL: Low HDL-cholesterol (major risk factor for CHD)>= 60 mg/dL: High HDL-cholesterol (negative risk factor for CHD)HDL-cholesterol is affected by a number of factors, e.g. smoking, exercise, hormones, sex and age. Serum or plasma cholesterol measurement (mass/volume)Ordered By: Melisa Barfield on 02-18-2025 Cholesterol [Mass/Vol] 217 mg/dL High <201 [facility] Comment on above: Cholesterol level, D esirable <200 mg/dLBorderline high cholesterol 200-239 mg/dLHigh cholesterol >=240 mg/dLRecommendations of the NCEP Adult Treatment Panel for the following risk-cutoff thresholds for the [place] population. Serum or plasma urea nitroge n measurement (mass/volume)Ordered By: Melisa Barfield on 02-18-2025 Urea nitrogen [Mass/Vol] 12 mg/dL 4-19 [facility] Sodium levelOrdered By: Marilia Barfield on 02-18-2025 Sodium [Moles/Vol] 140 mmol/L 133-145 [facility] Total proteinOrdered By: Pj Barfield on 02-18-2025 Protein [Mass/Vol] 7.4 g/dL 5.9-8.4 [facility] Triglycerides measurementOrd ered By: Melisa Barfield on 02-18-2025 Triglyceride [Mass/Vol] 92 mg/dL <199 [facility] Comment on above: The drugs N-Acetylcy steine and Metamizole may falsely depress this assay. Normal range: <150 mg/dLBorderline High: 150-199 mg/dLHigh: 200-499 mg/dLVery High: >500 mg/dL White blood cell (WBC) count Ordered By: Melisa Barfield on 02-18-2025 WBC (Bld) [#/Vol] 9.3 10*3/uL 4.4-11.0 [facility] PAP IG HPV APTIMA 16/18,45on 02-13-2025 ADEQ Comment Normal . [facility] Comment on above: Order Comment: Speci men Comment: [id number] Specimen Comment: No. of containers..01 ThinPrep Vial Result Comment: Sati sfactory for evaluation. Endocervical and/or squamous metaplastic cells (endocervical component) are present. Performed By: #### L 7400.0280 #### [facility] [address] [place], [place], [id number] COMM . Normal . [facility] Comment on above: Order Comment: Speci men Comment: [id number] Specimen Comment: No. of containers..01 ThinPrep Vial Performed By: #### L 7400.0280 #### [facility] [address] [place], [place], [id number] COMMENT Comment Normal . [facility] Comment on above: Order Comment: Speci men Comment: [id number] Specimen Comment: No. of containers..01 ThinPrep Vial Result Comment: This liquid based ThinPrep(R) pap test was screened with the use of an image guided system. Performed By: #### L 7400.0280 #### [facility] [address] [place], [place], [id number] DIAG Comment Normal . [facility] Comment on above: Order Comment: Speci men Comment: [id number] Specimen Comment: No. of containers..01 ThinPrep Vial Result Comment: NEGA TIVE FOR INTRAEPITHELIAL LESION OR MALIGNANCY. CELLULAR CHANGES ASSOCIATED WITH INFLAMMATION ARE PRESENT. Performed By: #### L 7400.0280 #### [facility] [address] [place], [address] HPV APTIMA, HR Negative Normal Negative [facility] Comment on above: Order Comment: Speci men Comment: [id number] Specimen Comment: No. of containers..01 ThinPrep Vial Result Comment: This nucleic acid amplification test detects fourteen high- risk HPV types (16,18,31,33,35,39,45,51,52,56,58,59,66,68) without differentiation. Performed By: #### L 7400.0280 #### [facility] [address] [place], [place], [id number] ([address] HPV Dominga Rfx Comment Normal . [facility] Comment on above: Order Comment: Speci men Comment: [id number] Specimen Comment: No. of containers..01 ThinPrep Vial Result Comment: Crit eria not met, HPV Genotype not performed. Performed at: [address] [id number] [place] Hand: Elda Calle MD, Phone: [phone] Performed at: = - [address] [id number] [place] Hand: Elda Calle MD, Phone: [phone] Performed By: #### L 7400.0280 #### [facility] [address] [place], [place], [address] ([address] PAPSMR Comment Normal . [facility] Comment on above: Order Comment: Speci men Comment: [id number] Specimen Comment: No. of containers..01 ThinPrep Vial Result Comment: The Pap smear is a screening test designed to aid in the detection of premalignant and malignant conditions of the uterine cervix. It is not a diagnostic procedure and should not be used as the sole means of detecting cervical cancer. Both false-positive and false-negative reports do occur. Performed By: #### L 7400.0280 #### [facility] [address] [place], [place], [id number] PERFORM Comment Normal . [facility] Comment on above: Order Comment: Speci men Comment: [id number] Specimen Comment: No. of containers..01 ThinPrep Vial Result Comment: Macarena Martínez, Transfer Operator (ASCP) Performed By: #### L 7400.0280 #### [facility] [address] [place], [place], [address] Cervical or vaginal specimen microscopic examination by liquid based cytology (reportOrdered By: Maraim Xiao on 02-10-2025 Cytology report Cyto stain.thin prep Doc (Cvx/Vag) Comment . [facility] Comment on above: Criteria not met, HP V Genotype not performed.Performed at: - [address] [id number] Director: Elda Calle MD, Phone: [phone] at: = - [facility] [id number] Director: Elda Calle MD, Phone: [phone] Cervical or vagninal specime n microscopic examination by cytology stain (reported asOrdered By: Mariam Xiao on 02-10-2025 Cytology report Cyto stain Doc (Cvx/Vag) Comment . [facility] Comment on above: The Pap smear is a s creening test designed to aid in thedetection of premalignant and malignant conditions of theuterine cervix. It is not a diagnostic procedure andshould not be used as the sole means of detecting cervicalcancer. Both false-positive and false-negative reports dooccur. Detection in cervical specim en of any of human papilloma virus (HPV) 16, 18, 31, 33,Ordered By: Mariam Xiao on 02-10-2025 HPV 16+18+31+33+35+39+45+51+ 52+56+58+59+66+68 DNA Probe+sig amp Ql (Cvx) Negative Negative [facility] Comment on above: This nucleic acid am plification test detects fourteen high-risk HPV types (16,18,31,33,35,39,45,51,52,56,58,59,66,68)without differentiation. Laboratory - CytologyOrdered By: Mariam Xiao on 02-10-2025 Transfer Operator Cyto stain Nom (Cvx/Vag) [ID] Comment . [facility] Comment on above: Maida Martínez, Transfer Operator (ASCP) Laboratory - Miscellaneous t estsOrdered By: Mariam Xiao on 02-10-2025 Service comment (Unsp spec) [Interp] . . [facility] No Panel InformationOrdered By: Mariam Xiao on 02-10-2025 Pap Smear Specimen Adequacy Comment . [facility] Comment on above: Satisfactory for virgil luation. Endocervical and/or squamous metaplasticcells (endocervical component) are present. 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 Complaint: Annual 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 Required: No Is patient in pain?: No Allergies No Known Allergies Allergy (Verified 02/10/25 15:09) Medications ???Medication ???Instructions ???Recorded ???Confirmed ???Type loratadine 10 mg tablet 10 mg PO DAILY 09/29/19 02/10/25 H istory multivitamin,tx-iron -minerals 1 tab PO DAILY 03/01/20 02/10/25 H istory (Complete Multivitamin tablet) Is last menstrual period known: No Post menopausal: No Patient : No : No [facility] Medical History (Updated 02/10/25 @ 15:21 by Mariam Xiao PINEAPPLE PLANTATION MANAGER, PINEAPPLE PLANTATION MANAGER-C) Cigarette nicotine dependence with withdrawal Facial skin lesion Wears glasses Smoker Essential hypertension Tobacco abuse Hyperlipidemia Overweight (BMI 25.0-29.9) Abnormal Pap smear of cervix Frequent sinus infections Fracture of finger of left hand Vision problems Surgical History H/O LEEP History of tonsillectomy History of knee surgery Family History Mother Cancer lung,uterine Anxiety Depression Diabetes Hypertension CVA (cerebral vascular accident) Uterine cancer 30s Father Hypertension Grandfather Cancer Myocardial infarction Heart disease Colon cancer Social History Smoking Status: Current every day smoker tobacco type: cigarettes alcohol intake: current alcohol intake frequency: holidays/special occasions only details: socially substance use type: does not use caffeine: Yes what type of physical activity do you participate in: walking, aerobics and weight training frequency: 3-4 times per week seatbelt use: always do you feel safe at home: Yes additional social history: [employer] History 2 Elective abortions Hx Para 2 Spontaneous abortions Hx # Term Pregnancies Ectopic pregnancies Hx # Pregnancies Multiple births # of living children Past Pregnancies Del. Date Name GA/Weeks Outcome Route Bth Weight Gen Labor Lgth Anesthesia Del Locatn Provider FOB Unknown 1998 Geremias live - full term Unknown 2001 [facility] live - full term HPI Encounter for routine gynecological examination Details: MAIDA WYATT is a 49 year old who presents for annual exam. Denies concerns Last PAP: 2020 History of abnormal PAP: LEEP >10 yr ago Last mammogram: 02/2024 History of abnormal mammogram: no Colon cancer screenin Other preventative health care screenings: Carolyne Female Reproductive History Questions: metrorrhagia: No, sexually active: Yes, dyspareunia: No and PCB: No ROS Const Constitutional: Denies fatigue, weight gain or weight loss Cardio Card: Denies chest pain Resp Resp: Denies cough or dyspnea on exertion GI GI: Denies abdominal pain, bloating, change in stool character, constipation or vomiting : Reports as per HPI; Denies difficulty voiding, pelvic pain, urinary frequency, urinary incontinence, urinary urgency, vaginal discharge or vaginal pruritus Exam Const General: cooperative, healthy appearing, no acute distress and well developed Orientation: alert, oriented to person and oriented to place HENNC Head: normal to inspection Neck Neck: normal visual inspection Thyroid: thyroid normal Lymphatic: no lymphadenopathy noted Chest Breast inspection: normal inspection of the breasts and normal inspection of the axillae Breast palpation: normal palpation of the breasts, normal palpation of the axillae and no axillary lymphadenopathy Resp Effort Inspection: normal respiratory effort GI Palpation: soft, no masses and nontender Rectal Exam: deferred External Female Exam: normal external appearance and normal appearance of the urethra Urethra: normal appearance of the urethra and normal palpation Speculum Exam - Vagina: normal appearance of the vagina and normal vaginal discharge Speculum Exam - Cervix: normal appearance of the cervix Bimanual Exam- Vagina Uterus: normal bimanual exam, uterine size normal, uterine shape normal and non-tender Bimanual Exam- Adnexa, other: normal adnexae, no masses, normal and non-tender Pelvic S (more content not included)... Normal [facility] Internal Medicine Office Vis iton 12-22-2024 Internal Medicine Office Visit [facility] [address] [place], [place] [address] OFFICE VISIT Date of Service: 12/22/24 MR#: [id number] Acct: [id number] Name: MAIDA WYATT DIAMOND Rep #: [id number] : 1975 Provider: KARAN aguilera Age/Sex: 49/F Location: [facility] Status: Signed Intake Vital Signs 02/05/24 10:02 12/22/24 14:50 Height 5 ft 4 in 5 ft 4 in Weight: 131 lb BMI 22.4 BP 122/78 H Blood Pressure Location Lt brachial Position Sitting Respiration 18 Pulse 84 Pulse Source Monitor Temp 97.2 F L Temp Source Temporal Pulse Oximetry (%) 95 Oxygen Delivery Method room air Intake Visit Reasons: QUIT SMOKING 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 Required: No Is patient in pain?: No Allergies No Known Allergies Allergy (Verified 12/22/24 14:39) Medications ???Medication ???Instructions ???Recorded ???Confirmed ???Type loratadine 10 mg tablet 10 mg PO DAILY 09/29/19 12/22/24 H istory multivitamin,tx-iron -minerals 1 tab PO DAILY 03/01/20 12/22/24 H istory (Complete Multivitamin tablet) bupropion HCl (smoking deter) 150 150 mg PO BID #60 tabs 12/22/24 0 12/22/24 Rx mg tablet,12 hr sustained-release(sm oking deterrent) Nurse's Note: Pt is wanting to quit smoking, pt smokes 1/2-1 ppd. Has been smoking for 30 years. Pt has tried to quit in the past and was put on the patch, but her and her were quitting together and had irritability in the household. Pt has tried to quit on her own and had no success. Pt states there is a lot of stress in her life, pt states that she has slowed down in smoking. Pt states she has had some changes w/ not working as much and trying to take better care of herself. Also concerned about cost of not quitting. Pt states that her did successful quit smoking. Pt states no one around her smokes and she misses out on a lot. Pt is currently seeing a counselor. Pt told her friends and family and will have them to also keep her accountable. Pt has never tried anything but the patch, pt is wanting quickest and easiest way to successfully quit and is open to pills. Pt's only roadbloack is not wanting to gain weight back as she lost 30lbs. [facility] Medical History (Updated 12/22/24 @ 15:37 by KARAN Tian) Cigarette nicotine dependence with withdrawal Facial skin lesion Wears glasses Smoker Essential hypertension Tobacco abuse Hyperlipidemia Overweight (BMI 25.0-29.9) Abnormal Pap smear of cervix Frequent sinus infections Fracture of finger of left hand Vision problems Surgical History H/O LEEP History of tonsillectomy History of knee surgery Family History Mother Cancer lung,uterine Anxiety Depression Diabetes Hypertension CVA (cerebral vascular accident) Uterine cancer 30s Father Hypertension Grandfather Cancer Myocardial infarction Heart disease Colon cancer Social History Smoking Status: Current every day smoker tobacco type: cigarettes alcohol intake: current alcohol intake frequency: holidays/special occasions only details: socially substance use type: does not use caffeine: Yes what type of physical activity do you participate in: walking, aerobics and weight training frequency: 3-4 times per week seatbelt use: always do you feel safe at home: Yes additional social history: [employer] HPI HPI Details: MAIDA WYATT, is a 49 F who presents to the office today for ROS Const Constitutional: No body ache, chills, excessive sweating, fatigue, fever(s), frequent falls, headache(s), snoring, weakness, sleep problems or change in appetite Eyes Eyes: No blurry vision, change in vision, eye pain or Light sensitivity ENT ENT: No abnormal hearing, ear or mastoid pain, tinnitus, nasal congestion, headache(s), neck pain or sore throat Resp Respiratory: No cough, shortness of breath, snoring or wheezing Cardio Cardiology: No chest pain at rest, chest pain with exertion, excessive sweating, shortness of breath, dyspnea on exertion, lightheadedness, orthopnea or palpitations Gastro GI: No abdominal pain, change in bowel habits, constipation, cramping, diarrhea, nausea/dyspepsia or vomiting Genitourinary-Female : No burning urination, painful urination, urinary incontinence, urinary frequency, abnormal vaginal bleeding or pelvic pain Musc Musculoskeletal: No abnormal gait, joint pain, back pain, limited range of motion, neck pain or numbness Skin Skin: No dry skin, redness, lesions, itchy eyes, rash or wounds Neuro Neurology: No abnormal gait, abnormal hearing, weakness, frequent falls, headache(s), memory loss or numbness Psych (more content not included)... Normal [facility] Laboratory - Chemistry and C hemistry - challengeOrdered By: Enoch Pickering on 06-21-2023 HCG ( test) Ql (U) Negative [facility] Comment on above: Very dilute urine sp ecimens, as indicated by a low specificgravity, may not contain pharmaceutical representative levels of hCG. If is still suspected, a first morning urinespecimen should be collected 48 hours later and tested. Absolute lymphocyte countOrd ered By: Dr. Barfield on 12-06-2022 Lymphocytes Auto (Unsp spec) [#/Vol] 1.93 10*3/uL 0.83-4.51 [facility] Basophil percentageOrdered B y: Dr. Barfield on 12-06-2022 Basophils/100 WBC (Bld) 0.7 % 0-1 [facility] Bilirubin [Mass/Vol] 0.50 mg/dL 0.20-1.00 [facility] Comment on above: For patients on eltr ombopag therapy, use of Dimension [place] TBIL is not recommended. Chloride [Moles/Vol] 109 mmol/L 98-107 [facility] Cholesterol [Mass/Vol] 214 mg/dL <200 [facility] Comment on above: <200 mg/dL Desirable 200-240 mg/dL Borderline >240 mg/dL High Risk Eosinophils/100 WBC (Bld) 1.3 % 0-5 [facility] Glucose [Mass/Vol] 84 mg/dL 74-106 [facility] Neutrophils (Bld) [#/Vol] 5.5 10*3/uL 2.0-7.7 [facility] Neutrophils/100 WBC (Bld) 65.6 % 47-70 [facility] Potassium [Moles/Vol] 4.2 mmol/L 3.5-5.1 [facility] Protein [Mass/Vol] 7.3 g/dL 6.4-8.2 [facility] Sodium [Moles/Vol] 140 mmol/L 136-145 [facility] Triglyceride [Mass/Vol] 66 mg/dL <199 [facility] Comment on above: The drugs N-Acetylcy steine and Metamizole may falsely depress this assay.Serum Triglycerides Reference Interval Normal <150 mg/dL Borderline high 150 - 199 mg/dL High 200 - 499 mg/dL Very High > or = 500 mg/dL WBC (Bld) [#/Vol] 8.3 10*3/uL 4.4-11.0 [facility] Blood erythrocytes count (nu mber/volume)Ordered By: Dr. Barfield on 12-06-2022 RBC (Bld) [#/Vol] 4.61 10*6/uL 4.2-5.4 [facility] Blood hemoglobin measurement (mass/volume)Ordered By: Dr. Barfield on 12-06-2022 Hemoglobin (Bld) [Mass/Vol] 13.9 g/dL 12.0-15.0 [facility] Blood lymphocytes/100 leukoc ytesOrdered By: Dr. Barfield on 12-06-2022 Lymphocytes/100 WBC (Bld) 23.1 % 19-41 [facility] Blood monocytes/100 leukocyt esOrdered By: Dr. Barfield on 12-06-2022 Monocytes/100 WBC (Bld) 9.1 % 0-10 [facility] Blood platelet mean volumeOr dered By: Dr. Barfield on 12-06-2022 Platelet mean volume (Bld) [Entitic vol] 9.5 fL 6.2-12.0 [facility] Determination of erythrocyte mean corpuscular volume (MCV)Ordered By: Dr. Barfield on 12-06-2022 MCV (RBC) [Entitic vol] 91.5 fL 81-99 [facility] Hematocrit Auto (Bld) [Volum e fraction]Ordered By: Dr. Barfield on 12-06-2022 Hematocrit (Bld) [Volume fraction] 42.2 % 37-47 [facility] Laboratory - Chemistry and C hemistry - challengeOrdered By: Dr. Barfield on 12-06-2022 ALP [Catalytic activity/Vol] 58 U/L 45-117 [facility] ALT [Catalytic activity/Vol] 20 U/L 13-56 [facility] CO2 [Moles/Vol] 25.0 mmol/L 21.0-32.0 [facility] Globulin (S) [Mass/Vol] 3.7 g/dL 2.2-4.2 [facility] Urea nitrogen/Creatinine [Mass ratio] 19.5 mg/mg 10-20 [facility] Laboratory - Hematology and Cell countsOrdered By: Dr. Barfield on 12-06-2022 Erythrocyte distribution width (RBC) [Entitic vol] 48.0 fL 35.1-43.9 [facility] Erythrocyte distribution width (RBC) [Ratio] 14.3 % 11.6-14.6 [facility] Immature granulocytes/100 WBC (Bld) 0.200 % 0.0-0.9 [facility] Comment on above: IG% - Immature Granu locytes (promyelocytes, myelocytes and metamyelocytes) > 1% indicates that a LEFT SHIFT is Present. MCH (RBC) [Entitic mass] 30.2 pg 27.0-32.0 [facility] Nucleated RBC/100 WBC (Bld) [Ratio] 0 % 0-5 [facility] MCHC Auto (RBC) [Mass/Vol]Or dered By: Dr. Barfield on 12-06-2022 MCHC (RBC) [Mass/Vol] 32.9 g/dL 32-36 [facility] No Panel InformationOrdered By: Dr. Barfield on 12-06-2022 Estimated GFR (MDRD) Amer 112 mL/min >60 [facility] Comment on above: GFR Calc Estimated GFR (MDRD) Non-Af Amer 92 mL/min >60 [facility] Comment on above: Non- GFR Calc Platelets bldOrdered By: Dr. Barfield on 12-06-2022 Platelets (Bld) [#/Vol] 320 10*3/uL 150-450 [facility] Serum or plasma albumin shannon urement (mass/volume)Ordered By: Dr. Barfield on 12-06-2022 Albumin [Mass/Vol] 3.6 g/dL 3.2-5.0 [facility] Serum or plasma albumin/glob ulin mass ratioOrdered By: Dr. Barfield on 12-06-2022 Albumin/Globulin [Mass ratio] 1.0 {ratio} 0.9-2.4 [facility] Serum or plasma calcium shannon urement (mass/volume)Ordered By: Dr. Barfield on 12-06-2022 Calcium [Mass/Vol] 9.0 mg/dL 8.5-10.1 [facility] Serum or plasma cholesterol in HDL measurement (mass/volume)Ordered By: Dr. Barfield on 12-06-2022 Cholesterol in HDL [Mass/Vol] 70 mg/dL >40 [facility] Comment on above: The drugs N-Acetylcy steine and Metamizole may falsely depress this assay. Reference Range HDL <40 mg/dL Low HDL Cholesterol HDL >or= 60 mg/dL High HDL Cholesterol Serum or plasma cholesterol in VLDL measurement (mass/volume)Ordered By: Dr. Barfield on 12-06-2022 Cholesterol in VLDL [Mass/Vol] 13 mg/dL 5-40 [facility] Serum or plasma creatinine m easurement (mass/volume)Ordered By: Dr. Barfield on 12-06-2022 Creatinine [Mass/Vol] 0.72 mg/dL 0.55-1.02 [facility] Comment on above: The validity of the calculated GFR & GFRAA in patients over 70 years has not been determined. Clinical correlation is essential. Serum or plasma low density lipoprotein (LDL) cholesterol measurement (mass/volume)Ordered By: Dr. Barfield on 12-06-2022 Cholesterol in LDL [Mass/Vol] 131 mg/dL 0-130 [facility] Serum or plasma urea nitroge n measurement (mass/volume)Ordered By: Dr. Barfield on 12-06-2022 Urea nitrogen [Mass/Vol] 14 mg/dL 7-18 [facility] Thin prep Papanicolaou smear with manual screeningOrdered By: Dr. Barfield on 12-06-2022 Thin prep Papanicolaou smear with manual screening 16 U/L 15-37 [facility] Thin prep Papanicolaou smear with manual screening 6 5-15 [facility] Absolute lymphocyte counton 12-05-2021 Lymphocytes Auto (Unsp spec) [#/Vol] 2.38 10*3/uL 0.83-4.51 [facility] Work Phone: Basophil percentageon 2021 Basophils/100 WBC (Bld) 0.9 % 0-1 [facility] Work Phone: Bilirubin [Mass/Vol] 0.40 mg/dL 0.20-1.00 [facility] Work Phone: Comment on above: For patients on eltr ombopag therapy, use of Dimension [place] TBIL is not recommended. Chloride [Moles/Vol] 107 mmol/L 98-107 [facility] Work Phone: [phone] Cholesterol [Mass/Vol] 210 mg/dL <200 [facility] Work Phone: [phone] Comment on above: <200 mg/dL Desirable 200-240 mg/dL Borderline >240 mg/dL High Risk Eosinophils/100 WBC (Bld) 2.4 % 0-5 [facility] Work Phone: Glucose [Mass/Vol] 93 mg/dL 74-106 [facility] Work Phone: Neutrophils (Bld) [#/Vol] 4.3 10*3/uL 2.0-7.7 [facility] Work Phone: Neutrophils/100 WBC (Bld) 56.6 % 47-70 [facility] Work Phone: Potassium [Moles/Vol] 3.9 mmol/L 3.5-5.1 [facility] Work Phone: Protein [Mass/Vol] 7.4 g/dL 6.4-8.2 [facility] Work Phone: Sodium [Moles/Vol] 139 mmol/L 136-145 [facility] Work Phone: Triglyceride [Mass/Vol] 111 mg/dL [facility] Work Phone: Comment on above: The drugs N-Acetylcy steine and Metamizole may falsely depress this assay.Serum Triglycerides Reference Interval Normal <150 mg/dL Borderline high 150 - 199 mg/dL High 200 - 499 mg/dL Very High > or = 500 mg/dL WBC (Bld) [#/Vol] 7.6 10*3/uL 4.4-11.0 [facility] Work Phone: Blood erythrocytes count (nu mber/volume)on 12-05-2021 RBC (Bld) [#/Vol] 4.69 10*6/uL 4.2-5.4 [facility] Work [facility]: Blood hemoglobin measurement (mass/volume)on 12-05-2021 Hemoglobin (Bld) [Mass/Vol] 14.1 g/dL 12.0-15.0 [facility] Work Phone: Blood lymphocytes/100 leukoc yteson 12-05-2021 Lymphocytes/100 WBC (Bld) 31.2 % 19-41 [facility] Work Phone: Blood monocytes/100 leukocyt eson 12-05-2021 Monocytes/100 WBC (Bld) 8.6 % 0-10 [facility] Work Phone: Blood platelet mean volumeon 12-05-2021 Platelet mean volume (Bld) [Entitic vol] 9.9 fL 6.2-12.0 [facility] Work Phone: Determination of erythrocyte mean corpuscular volume (MCV)on 12-05-2021 MCV (RBC) [Entitic vol] 91.3 fL 81-99 [facility] Work Phone: Hematocrit Auto (Bld) [Volum e fraction]on 12-05-2021 Hematocrit (Bld) [Volume fraction] 42.8 % 37-47 [facility] Work Phone: Laboratory - Chemistry and C hemistry - challengeon 12-05-2021 ALP [Catalytic activity/Vol] 66 U/L 45-117 [facility] Work Phone: ALT [Catalytic activity/Vol] 22 U/L 13-56 [facility] Work Phone: CO2 [Moles/Vol] 29.0 mmol/L 21.0-32.0 [facility] Work Phone: Globulin (S) [Mass/Vol] 3.7 g/dL 2.2-4.2 [facility] Work Phone: Urea nitrogen/Creatinine [Mass ratio] 17.3 mg/mg 10-20 [facility] Work Phone: Laboratory - Hematology and Cell countson 12-05-2021 Erythrocyte distribution width (RBC) [Entitic vol] 46.8 fL 35.1-43.9 [facility] Work Phone: Erythrocyte distribution width (RBC) [Ratio] 13.8 % 11.6-14.6 [facility] Work Phone: Immature granulocytes/100 WBC (Bld) 0.300 % 0.0-0.9 [facility] Work Phone: Comment on above: IG% - Immature Granu locytes (promyelocytes, myelocytes and metamyelocytes) > 1% indicates that a LEFT SHIFT is Present. MCH (RBC) [Entitic mass] 30.1 pg 27.0-32.0 [facility] Work Phone: Nucleated RBC/100 WBC (Bld) [Ratio] 0 % 0-5 [facility] Work Phone: MCHC Auto (RBC) [Mass/Vol]on 12-05-2021 MCHC (RBC) [Mass/Vol] 32.9 g/dL 32-36 [facility] Work Phone: No Panel Informationon 12-05 Estimated GFR (MDRD) Amer 117 mL/min >60 [facility] Work Phone: Comment on above: GFR Calc Estimated GFR (MDRD) Non-Af Amer 96 mL/min >60 [facility] Work Phone: Comment on above: Non- GFR Calc Platelets bldon 12-05-2021 Platelets (Bld) [#/Vol] 344 10*3/uL 150-450 [facility] Work Phone: Serum or plasma albumin shannon urement (mass/volume)on 12-05-2021 Albumin [Mass/Vol] 3.7 g/dL 3.2-5.0 [facility] Work Phone: Serum or plasma albumin/glob ulin mass ratioon 12-05-2021 Albumin/Globulin [Mass ratio] 1.0 {ratio} 0.9-2.4 [facility] Work Phone: Serum or plasma calcium shannon urement (mass/volume)on 12-05-2021 Calcium [Mass/Vol] 8.5 mg/dL 8.5-10.1 [facility] Work Phone: Serum or plasma cholesterol in HDL measurement (mass/volume)on 12-05-2021 Cholesterol in HDL [Mass/Vol] 64 mg/dL [facility] Work Phone: Comment on above: The drugs N-Acetylcy steine and Metamizole may falsely depress this assay. Reference Range HDL <40 mg/dL Low HDL Cholesterol HDL >or= 60 mg/dL High HDL Cholesterol Serum or plasma cholesterol in VLDL measurement (mass/volume)on 12-05-2021 Cholesterol in VLDL [Mass/Vol] 22 mg/dL 5-40 [facility] Work Phone: Serum or plasma creatinine m easurement (mass/volume)on 12-05-2021 Creatinine [Mass/Vol] 0.70 mg/dL 0.55-1.02 [facility] Work Phone: Comment on above: The validity of the calculated GFR & GFRAA in patients over 70 years has not been determined. Clinical correlation is essential. Serum or plasma low density lipoprotein (LDL) cholesterol measurement (mass/volume)on 12-05-2021 Cholesterol in LDL [Mass/Vol] 124 mg/dL 0-130 [facility] Work Phone: Serum or plasma urea nitroge n measurement (mass/volume)on 12-05-2021 Urea nitrogen [Mass/Vol] 12 mg/dL 7-18 [facility] Work Phone: Thin prep Papanicolaou smear with manual screeningon 12-05-2021 Thin prep Papanicolaou smear with manual screening 14 U/L 15-37 [facility] Work Phone: Thin prep Papanicolaou smear with manual screening 3 5-15 [facility] Work Phone: PROGRESSon 08-19-2019 PROGRESS HNO ID: [id number] Author: Marika Sabillon Service: ? Author Type: Lead Auditor Type: Progress Notes Filed: 08/19/2019 10:21 AM Note Text: POPULATION HEALTH DOCK OPERATOR QUICKNOTE Provider Action/FYI: Spoke with Maida. She will call back to schedule appointment. Needs 40 min appointment Patient identified by name and . Marika Sabillon [facility]14-2019 CNPTOUTREA Patient Outreach (FAMPWS) MAIDA WYATT ([id number]) 1975 F Date Time Provider Department 08/14/19 MARIKA SABILLON) FAMPWS During your visit today, we recorded the following information about you: Marika Sabillon MA 08/19/2019 10:20 AM Signed PHMA TEAMLET DOCUMENTATION Provider Action/FYI: Patient needs appointment, labs ordered, PSR Action/FYI: schedule ov mammogram 40 mins Health Maintenance Due: ONE PNEUMOVAX PRIOR TO AGE 65 due on 1994 PAP TESTING due on 09/06/2017 HPV TESTING due on 09/06/2017 MAMMOGRAM due on 05/14/2018 INFLUENZA(1) due on 03/16/2019 Teamlet has identified patient by name and date of . Team: Teja Gutierrez DO, MAURICIO Gunderson, DO Archuleta LPN Kathy Schlabach,ABBY ? Last Office Visit:Visit date not found ? Next Office Visit: Visit date not found ? Last BP/Labs: Blood Pressure: Last 3 Encounter BP Readings: Date: BP: 03/13/2017 100/60 03/24/2016 120/70 10/22/2015 128/78 Lipids: Cholesterol, Total (mg/dL) Date Value 03/13/2017 199 11/09/2015 198 HDL Cholesterol (mg/dL) Date Value 03/13/2017 50 11/09/2015 48 LDL Cholesterol (mg/dL) Date Value 03/13/2017 124 11/09/2015 139 Triglyceride (mg/dL) Date Value 03/13/2017 123 11/09/2015 55 HGB A1C: Lab Results Component Value Date HBA1C 5.3 11/09/2015 TSH: TSH (uU/mL) Date Value 03/13/2017 1.310 11/09/2015 1.510 ) Care Gap: yearly visit Plan: ? Confirm PCP / Status ? Type of appointment needed: Follow up 40 minutes ? Consultation Appointments: No patient outreach needed at this time ? Labs, HM and Immunization: Labs: CMP Lipids Mammogram ABBY Roy APRN.PROBATION SUPERVISOR 08/19/2019 10:21 AM Signed Orders signed. Yamile James APRN.ISHMAEL Sabillon MA 08/19/2019 10:21 AM Signed POPULATION [facility] DOCK OPERATOR QUICKNOTE Provider Action/FYI: Spoke with Maida. She will call back to schedule appointment. Needs 40 min appointment Patient identified by name and . Marika Sabillon MA Allergies As of Date: 08/14/2019 (No Known Allergies) Date Reviewed: 04/26/2017 Reviewed by: Yara Barton - Fully Assessed Reason for Visit: PHMA/Care Gap Outreach [3605] Primary Visit Diagnosis:Screening for breast cancer [Z12.39] Other Visit Diagnoses:Screening for hyperlipidemia [Z13.220] Screening for diabetes mellitus [Z13.1] Order(s):COMP METABOLIC PANEL [SQCMP] Order #: [id number] FUTURE LIPID PANEL, NONFASTING [SQLIPNF] Order #: [id number] FUTURE HUBERT SCREENING [1994760] Order #: [id number] FUTURE Prescriptions as of 08/14/2019 Sig: DIAZEPAM 5 MG TABLET Take 1 tablet by mouth every * CETIRIZINE 10 MG CAPSULE Take 10 mg by mouth once chacha* MULTIVITAMIN ORAL Take by mouth. Problem List As Of Date 08/14/2019 Noted Resolved Tobacco use disorder [F17.200] 10/22/2015 Need for Tdap vaccination [Z23] 10/22/2015 Overweight (BMI 25.0-29.9) [E66.3] 10/22/2015 Well adult exam [Z00.00] 10/22/2015 Encounter Status:Closed by MARIKA SABILLON on 08/19/19 [facility] PROGRESSon 08-14-2019 PROGRESS HNO ID: [id number] Author: Yamile Palmer) Jacob Service: ? Author Type: Nurse Practitioner Type: Progress Notes Filed: 08/19/2019 10:21 AM Note Text: Orders signed. Yamile James APRN.[facility] PROGRESS HNO ID: [id number] Author: Marika Sabillon Service: ? Author Type: Lead Auditor Type: Progress Notes Filed: 08/19/2019 10:20 AM Note Text: PHMA TEAMLET DOCUMENTATION Provider Action/FYI: Patient needs appointment, labs ordered, PSR Action/FYI: schedule ov mammogram 40 mins Health Maintenance Due: ONE PNEUMOVAX PRIOR TO AGE 65 due on 1994 PAP TESTING due on 09/06/2017 HPV TESTING due on 09/06/2017 MAMMOGRAM due on 05/14/2018 INFLUENZA(1) due on 03/16/2019 Teamlet has identified patient by name and date of . Team: Teja Gutierrez DO, MAURICIO Gunderson, DO Archuleta LPN Kathy Schlabach,ABBY ? Last Office Visit:Visit date not found ? Next Office Visit: Visit date not found ? Last BP/Labs: Blood Pressure: Last 3 Encounter BP Readings: Date: BP: 03/13/2017 100/60 03/24/2016 120/70 10/22/2015 128/78 Lipids: Cholesterol, Total (mg/dL) Date Value 03/13/2017 199 11/09/2015 198 HDL Cholesterol (mg/dL) Date Value 03/13/2017 50 11/09/2015 48 LDL Cholesterol (mg/dL) Date Value 03/13/2017 124 11/09/2015 139 Triglyceride (mg/dL) Date Value 03/13/2017 123 11/09/2015 55 HGB A1C: Lab Results Component Value Date HBA1C 5.3 11/09/2015 TSH: TSH (uU/mL) Date Value 03/13/2017 1.310 11/09/2015 1.510 ) Care Gap: yearly visit Plan: ? Confirm PCP / Status ? Type of appointment needed: Follow up 40 minutes ? Consultation Appointments: No patient outreach needed at this time ? Labs, HM and Immunization: Labs: CMP Lipids Mammogram Marika Sabillon MA Normal [facility] Vital Signs Date Time Vital Sign Value Performing Clinician Yash abreu 02-18-2025 11:31-0400 Body height 162.[address] Melisa Barfield MD Work Phone: [facility] 02-18-2025 11:31-0400 Body mass index (BMI) [Ratio] 22.4 kg/m2 Dr. Melisa Barfield MD Work Phone: [facility] 02-18-2025 11:31-0400 Body temperature 97.4 [degF] Dr. Melisa Barfield MD Work Phone: [facility] 02-18-2025 11:31-0400 Body weight 59.[address] Melisa Barfield MD Work Phone: [facility] 02-18-2025 11:31-0400 Diastolic blood pressure 70 mm[Hg] Dr. Melisa Barfield MD Work Phone: [facility] 02-18-2025 11:31-0400 Heart rate 58 /min Dr. Melisa Barfield MD Work Phone: [facility] 02-18-2025 11:31-0400 Respiratory rate 16 /min Dr. Melisa Barfield MD Work Phone: [facility] 02-18-2025 11:31-0400 SaO2% (BldA) [Mass fraction] 94 % Dr. Melisa Barfield MD Work Phone: [facility] 02-18-2025 11:31-0400 Systolic blood pressure 112 mm[Hg] Dr. Melisa Barfield MD Work Phone: [facility] 02-10-2025 15:16-0400 Body height 162.[address] Melisa Barfield MD Work Phone: [facility] 02-10-2025 15:10-0400 Body mass index (BMI) [Ratio] 22.6 kg/m2 Dr. Melisa Barfield MD Work Phone: [facility] 02-10-2025 15:10-0400 Body weight 59.[address] Melisa Barfield MD Work Phone: [facility] 02-10-2025 15:10-0400 Diastolic blood pressure 64 mm[Hg] Dr. Melisa Barfield MD Work Phone: [facility] 02-10-2025 15:10-0400 Systolic blood pressure 112 mm[Hg] Dr. Melisa Barfield MD Work Phone: [facility] 12-22-2024 14:50-0400 Body height 162.[address] Melisa Barfield MD Work Phone: [facility] 12-22-2024 14:50-0400 Body mass index (BMI) [Ratio] 22.4 kg/m2 Dr. Melisa Barfield MD Work Phone: [facility] 12-22-2024 14:50-0400 Body temperature 97.2 [degF] Dr. Melisa Barfield MD Work Phone: [facility] 12-22-2024 14:50-0400 Body weight 59.[address] Melisa Barfield MD Work Phone: [facility] 12-22-2024 14:50-0400 Diastolic blood pressure 78 mm[Hg] Dr. Melisa Barfield MD Work Phone: [facility] 12-22-2024 14:50-0400 Heart rate 84 /min Dr. Melisa Barfield MD Work Phone: [facility] 12-22-2024 14:50-0400 Respiratory rate 18 /min Dr. Melisa Barfield MD Work Phone: [facility] 12-22-2024 14:50-0400 SaO2% (BldA) [Mass fraction] 95 % Dr. Melisa Barfield MD Work Phone: [facility] 12-22-2024 14:50-0400 Systolic blood pressure 122 mm[Hg] Dr. Melisa Barfield MD Work Phone: [facility] 06-21-2023 07:50-0500 Body temperature 97 [degF] Dr. Melisa Barfield Work Phone: [facility] 06-21-2023 07:50-0500 Diastolic blood pressure 72 mm[Hg] Dr. Melisa Barfield Work Phone: [facility] 06-21-2023 07:50-0500 Heart rate 69 /min Dr. Melisa Barfield Work Phone: [facility] 06-21-2023 07:50-0500 Respiratory rate 16 /min Dr. Melisa Barfield Work Phone: [facility] 06-21-2023 07:50-0500 SaO2% (BldA) [Mass fraction] 100 % Dr. Melisa Barfield Work Phone: [facility] 06-21-2023 07:50-0500 Systolic blood pressure 110 mm[Hg] Dr. Melisa Barfield Work Phone: [facility] 06-21-2023 06:20-0500 Body height 162.[address] Melisa Barfield Work Phone: [facility] 06-21-2023 06:20-0500 Body mass index (BMI) [Ratio] 25.9 kg/m2 Dr. Melisa Barfield Work Phone: [facility] 06-21-2023 06:20-0500 Body weight 68.[address] Melisa Barfield Work Phone: [facility] 06-05-2023 13:58-0500 Body mass index (BMI) [Ratio] 26.2 kg/m2 Dr. Melisa Barfield Work Phone: [facility] 06-05-2023 13:58-0500 Body weight 69.[address] Melisa Barfield Work Phone: [facility] 12-06-2022 09:05-0400 Body height 162.[address] Melisa Barfield Work Phone: [facility] 12-06-2022 09:05-0400 Body mass index (BMI) [Ratio] 26.4 kg/m2 Dr. Melisa Barfield Work Phone: [facility] 12-06-2022 09:05-0400 Body temperature 98.1 [degF] Dr. Melisa Barfiedl Work Phone: [facility] 12-06-2022 09:05-0400 Body weight 69.[address] Melisa Barfield Work Phone: [facility] 12-06-2022 09:05-0400 Diastolic blood pressure 82 mm[Hg] Dr. Melisa Barfield Work Phone: [facility] 12-06-2022 09:05-0400 Heart rate 72 /min Dr. Melisa Barfield Work Phone: [facility] 12-06-2022 09:05-0400 Respiratory rate 14 /min Dr. Melisa Barfield Work Phone: [facility] 12-06-2022 09:05-0400 SaO2% (BldA) [Mass fraction] 98 % Dr. Melisa Barfield Work Phone: [facility] 12-06-2022 09:05-0400 Systolic blood pressure 136 mm[Hg] Dr. Melisa Barfield Work Phone: [facility] 12-05-2021 08:59-0400 Body height 162.[address] Melisa Barfield Work Phone: [facility] Work Phone: 12-05-2021 08:59-0400 Body mass index (BMI) [Ratio] 25.6 kg/m2 Dr. Melisa Barfield Work Phone: [facility] Work Phone: 12-05-2021 08:59-0400 Body temperature 98.4 [degF] Dr. Melisa Barfield Work Phone: [facility] Work Phone: 12-05-2021 08:59-0400 Body weight 67.[address] Melisa Barfield Work Phone: [facility] Work Phone: 12-05-2021 08:59-0400 Diastolic blood pressure 110 mm[Hg] Dr. Melisa Barfield Work Phone: [facility] Work Phone: 12-05-2021 08:59-0400 Heart rate 76 /min Dr. Melisa Barfield Work Phone: [facility] Work Phone: 12-05-2021 08:59-0400 Respiratory rate 16 /min Dr. Melisa Barfield Work Phone: [facility] Work Phone: 12-05-2021 08:59-0400 SaO2% (BldA) [Mass fraction] 99 % Dr. Melisa Barfield Work Phone: [facility] Work Phone: 12-05-2021 08:59-0400 Systolic blood pressure 140 mm[Hg] Dr. Melisa Barfield Work Phone: [facility] Work Phone: Encounters Encounter Date Encounter Type Care Provider Facility Start: 02-18-2025 End: 02-18-[address] Melisa Barfield MD Work Phone: -[facility] Start: 02-18-2025 End: 02-18-[address] Melisa Barfield MD -[facility] Work Phone: Start: 02-18-2025 End: 02-18-[address] Melisa Barfield MD [facility] Start: 02-16-2025 ambulatory Melisa Dacosta ty:[facility] Start: 02-16-2025 Patient encounter procedure Mariam Xiao NP-C -[facility] Work Phone: Start: 02-10-2025 End: 02-10-2025 Patient encounter procedure Mariam Xiao [employer] MANAGER-C -[facility] Work Phone: Start: 02-10-2025 End: 02-10-2025 Patient encounter status Mariam Xiao [employer] MANAGER-C [facility] Start: 02-10-2025 End: 02-10-[address] Melisa Barfield MD Work Phone: -[facility] Start: 12-22-2024 End: 12-22-2024 Patient encounter procedure Malissa Garcia [employer] MANAGER-C -[facility] Work Phone: Start: 12-22-2024 End: 12-22-[address] Melisa Barfield MD Work Phone: [facility] Work Phone: Start: 06-21-2023 Non-patient / Non-visit Dr. Lio Barfield Work Phone: [facility] Start: 06-21-2023 End: 06-21-2023 Admission to same day surgery center Dr. Melisa Barfield Work Phone: [facility]-Endoscopy Work Phone: Start: 06-21-2023 End: 06-21-[address] Melisa Barfield Work Phone: [facility] Work Phone: Start: 06-05-2023 Non-patient / Non-visit Dr. Lio Barfield Work Phone: [facility] Work Phone: Start: 12-20-2022 End: 12-20-[address] Melisa Barfield Work Phone: [facility] Work Phone: Start: 12-20-2022 End: 12-20-[address] Melisa Barfield Work Phone: [facility]-Outpatient Breast Imaging Start: 12-06-2022 End: 12-06-[address] Melisa Barfield Work Phone: [facility] Work Phone: Start: 12-06-2022 End: 12-06-2022 Encounter for general adult medical examination without abnormal findings Dr. Melisa Barfield Work Phone: [facility] Start: 12-06-2022 End: 12-06-[address] Melisa Barfield Work Phone: [facility] Start: 12-19-2021 End: 12-19-[address] Melisa Barfield Work Phone: [facility]-Outpatient Breast Imaging Start: 12-05-[address] Melisa Barfield Work Phone: [facility] Start: 12-05-2021 End: 12-05-2021 Encounter for general adult medical examination without abnormal findings Dr. Melisa Barfield Work Phone: [facility] Start: 12-05-2021 End: 12-05-[address] Melisa Barfield Work Phone: [facility] Start: 04-19-2020 End: 04-19-2020 Subsequent hospital visit by physician Lynn Law Work Phone: [facility] Comment on above: Family history of ut erine cancer Procedures Date Procedure Procedure Detail Performing Clinician Start: 02-16-2025 Screening mammography Edwardo Barfield MD Work Phone: Start: 02-10-2025 Liquid based cervica l cytology screening Dr. Melisa Barfield MD Work Phone: Comment on above: NEGATIVE FOR INTRAEP ITHELIAL LESION OR MALIGNANCY.CELLULAR CHANGES ASSOCIATED WITH INFLAMMATION ARE PRESENT. This liquid based Th inPrep(R) pap test was screened withthe use of an image guided system. Start: 06-21-[address] Cassius Barfield Work Phone: Start: 12-20-2022 Screening mammography Edwardo Barfield Work Phone: Start: 12-19-2021 Screening mammography Edwardo Barfield Work Phone: Plan of Treatment Date Care Activity Detail Author Start: 02-18-2025 CBC W Auto Different ial panel - Blood [facility] Start: 02-18-2025 Comprehensive metabo lic 2000 panel - Serum or Plasma [facility] Start: 02-18-2025 Lipid 1996 panel - S germania or Plasma [facility] Start: 06-21-2023 Patient discharge [facility] Start: 12-06-2022 Patient referral [facility] Work Phone: Start: 05-10-2020 End: 05-10-2020 Telehealth Ancillary 05/10/2020 Telehealth Ancillary Genetics Janette Redd, [facility] [place] [address] [phone] [facility] Start: 03-16-2020 FLU (#1) FLU (#1) [facility] Start: 1996 Microscopic observat ion Cyto stain Nom (Cvx) Pap Smear [facility] Start: 1994 Hepatitis B (1 of 3 - Risk 3-dose series) Hepatitis B (1 of 3 - Risk 3-dose series) [facility] Start: 1991 MenB (1 of 2 - MenB 2-Dose Series) MenB (1 of 2 - MenB 2-Dose Series) [facility] Start: 1982 Tetanus Diphtheria a nd Pertussis Vaccines (1 - Tdap) Tetanus Diphtheria and Pertussis Vaccines (1 - Tdap) [facility] Start: 1976 Hepatitis A (1 of 2 - Risk 2-dose series) Hepatitis A (1 of 2 - Risk 2-dose series) [facility] Start: 1976 MMR (1 of 1 - Standa rd series) MMR (1 of 1 - Standard series) [facility] Start: 1976 Varicella (1 of 2 - 2-dose childhood series) Varicella (1 of 2 - 2-dose childhood series) [facility] Alanine aminotransfe rase [Enzymatic activity/volume] in Serum or Plasma [facility] Albumin [Mass/volume ] in Serum or Plasma [facility] Alkaline phosphatase [Enzymatic activity/volume] in Serum or Plasma [facility] Anion gap in Serum o r Plasma [facility] Bilirubin, total measurement [facility] BUN/Creatinine ratio [facility] Calcium [Mass/volume ] in Serum or Plasma [facility] Carbon dioxide, tota l [Moles/volume] in Central venous blood [facility] Cholesterol [Mass/vo lume] in Serum or Plasma [facility] Cholesterol in HDL [Mass/volume] in Serum or Plasma [facility] Creatinine [Mass/vol ume] in Serum or Plasma [facility] Erythrocyte mean corpuscular volume determination [facility] End: 04-19-2020 Genetic Sendout: Common Hereditary Cancers Panel Genetic Sendout: Common Hereditary Cancers Panel Lab Timed Family history of uterine cancer 1 Occurrences starting 04/19/2020 until 04/19/2020 [facility] Comment on above: 1 Occurrences starti ng 04/19/2020 until 04/19/2020 Genetic Sendout: Com mon Hereditary Cancers Panel Genetic Sendout: Common Hereditary Cancers Panel Lab Routine Family history of uterine cancer 04/19/2020 2:04 PM EDT [facility] Glucose [Mass/volume ] in Serum or Plasma [facility] Hematocrit [Volume Fraction] of Blood [facility] Hemoglobin [Mass/vol ume] in Blood [facility] Leukocytes [#/volume ] in Blood [facility] Liquid based cervica l cytology screening [facility] Low density lipoprot ein cholesterol measurement [facility] Mean corpuscular hem oglobin concentration determination [facility] Mean corpuscular hem oglobin determination [facility] Measurement of renal function [facility] Neutrophil count [facility] Neutrophil percent differential count [facility] Patient referral [facility] Work Phone: Platelets [#/volume] in Blood [facility] Potassium measurement [facility] Red blood cell count [facility] Red cell distributio n width determination [facility] Serum chloride measurement [facility] Sodium measurement [facility] Total cholesterol:HD L ratio measurement [facility] Total protein measurement [facility] Triglycerides measurement [facility] Urea nitrogen [Mass/ volume] in Serum or Plasma [facility] VLDL cholesterol measurement [facility] Payers Date Payer Category Payer Self-pay [id number] [id number] 2024 Private Health Insurance [id number] 2024 Unknown [id number] 2019 [facility] [id number] 2019-Present [address] [place] [address] [id number] Unknown [id number] Unknown [id number] Unknown [id number] Unknown [id number] Unknown [id number] Social History Date Type Detail Facility Start: 04-19-2020 End: 12-22-2024 Tobacco smoking status ORIS Current every day smoker [facility] Start: 04-19-2020 Cigarettes smoked current (pack per day) - Reported [facility] Start: 04-19-2020 Tobacco use and exposure Never used [facility] Start: 04-19-2020 Tobacco Comment since age 18 [facility] Sex Assigned At Not on file [facility] Exposure to SARS-CoV -2 (event) Not sure [facility] Start: 12-05-2021 End: 06-18-2023 Tobacco smoking status ORIS Unknown if ever smoked [facility] Start: 1975 Sex Assigned At Female [facility] Start: 02-18-2025 Tobacco smoking stat us ORIS Ex-smoker (finding) [facility] Gender Identity Identifies as fe male gender (finding) [facility] Sexual Orientation Heterosexual (finding) [facility] Goals Date Patient Goal Desired Activity /State Mental Status Date Assessment Result Facility 06-21-2023 Cognitive function Voice/Name [facility] Work Phone: Clinical Notes 06-21-2023 to 02-10-2025 Note Date & Type Note Facility 02-10-2025 Progress note [facility] 02-10-2025 Progress note Note Date/Time February 10, 2025 3:26pm [facility] [address] [place] [address], [address] [place] [address] OFFICE VISIT Date of Service: 02/10/25 MR#: [id number] Acct: [id number] Name: MAIDA WYATT Rep #: [id number] : 1975 Provider: KARAN Xiao Age/Sex: 49/F [place] [facility] [place]: Signed Intake Vital Signs 02/05/24 10:02 12/22/24 14:50 02/10/25 15:10 02/10/25 15:16 Height 5 ft 4 in 5 ft 4 in 5 ft 4 in 5 ft 4 in Weight: 132 lb 4 oz BMI 22.6 BP 112/64 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 Complaint: Annual 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 Required: No Is patient in pain?: No Allergies No Known Allergies Allergy (Verified 02/10/25 15:09) Medications ?Medication ?Instructions ?Recorded ?Confirmed ?Type loratadine 10 mg tablet 10 mg PO DAILY 09/29/1901/14 History multivitamin,[id number] 1 tab PO DAILY 03/01/20 02/10/25 History (Complete Multivitamin tablet) Is last menstrual period known: No Post menopausal: No Patient : No : No [facility] Medical History (Updated 02/10/25 @ 15:21 by Mariam Xiao P[employer] PLANTATION MANAGER, KARAN) Cigarette nicotine dependence with withdrawal Facial skin lesion Wears glasses Smoker Essential hypertension Tobacco abuse Hyperlipidemia Overweight (BMI 25.0-29.9) Abnormal Pap smear of cervix Frequent sinus infections Fracture of finger of left hand Vision problems Surgical History H/O LEEP History of tonsillectomy History of knee surgery Family History Mother Cancer lung,uterine Anxiety Depression Diabetes Hypertension CVA (cerebral vascular accident) Uterine cancer 30s Father Hypertension Grandfather Cancer Myocardial infarction Heart disease Colon cancer Social History Smoking Status: Current every day smoker tobacco type: cigarettes alcohol intake: current alcohol intake frequency: holidays/special occasions only details: socially substance use type: does not use caffeine: Yes what type of physical activity do you participate in: walking, aerobics and weight training frequency: 3-4 times per week seatbelt use: always do you feel safe at home: Yes additional social history: [employer] History 2 Elective abortions Hx Para 2 Spontaneous abortions Hx # Term Pregnancies Ectopic pregnancies Hx # Pregnancies Multiple births # of living children Past Pregnancies Del. Date Name GA/Weeks Outcome Route Bth Weight Infant Gen Labor Lgth Anesthesia Del Locatn Provider FOB Unknown 1998 [facility] live - full term Unknown 2001 [facility] live - full term HPI Encounter for routine gynecological examination Details: MAIDA WYATT is a 49 year old who presents for annual exam. Denies concerns Last PAP: 2019 History of abnormal PAP: LEEP >10 yr ago Last mammogram: 02/2024 History of abnormal mammogram: no Colon cancer screenin Other preventative health care screenings: [facility] Female Reproductive History Questions: metrorrhagia: No, sexually active: Yes, dyspareunia: No and PCB: No ROS Const Constitutional: Denies fatigue, weight gain or weight loss Cardio Card: Denies chest pain Resp Resp: Denies cough or dyspnea on exertion GI GI: Denies abdominal pain, bloating, change in stool character, constipation or vomiting : Reports as per HPI; Denies difficulty voiding, pelvic pain, urinary frequency, urinary incontinence,urinary urgency, vaginal discharge or vaginal pruritus Exam Const General: cooperative, healthy appearing, no acute distress and well developed Orientation: alert, oriented to person and oriented to place HENNC Head: normal to inspection Neck Neck: normal visual inspection Thyroid: thyroid normal Lymphatic: no lymphadenopathy noted Chest Breast inspection: normal inspection of the breasts and normal inspection of theaxillae Breast palpation: normal palpation of the breasts, normal palpation of the axillae and no axillary lymphadenopathy Resp Effort & Inspection: normal respiratory effort GI Palpation: soft, no masses and nontender Rectal Exam: deferred External Female Exam: normal external appearance and normal appearance of the urethra Urethra: normal appearance of the urethra and normal palpation Speculum Exam - Vagina: normal appearance of the vagina and normal vaginal discharge Speculum Exam - Cervix: normal appearance of the cervix Bimanual Exam- Vagina & Uterus: normal bimanual exam, uterine size normal, uterine shape normal and non-tender Bimanual Exam- Adnexa, other: normal adnexae, no masses, normal and non-tender Pelvic Support: normal Neuro General: patient alert and patient oriented x3 Psych Affect: normal affect Coding Level of Care Code Off vis,est,prev 40-64yrs Diagnoses Encounter for gynecological examination without abnormal finding Z01.419 Gynecological examination findings: abnormal findings ABSENT Assessment and Plan Assessment and Plan (1) Encounter for routine gynecological examination: Qualifiers: Gynecological examination findings: abnormal findings ABSENT Qualified Code(s): Z01.419 - Encounter for gynecological examination (general) (routine) without abnormal findings Orders: Orders PAP IG HPV APTIMA 16/18,45 Today Z12.4 - Encounter for screening for malignant neoplasm of cervix Plan ,Completed breast and pelvic exam Reviewed diet and exercise Pap thin prep pap with HPV Mammogram scheduled Support given for not smoking X 4 weeks breast self exam encouraged monthly Colonoscopy 2022 RTO 1 year, prn with problems Mariam Xiao [facility] 02/10/25 1526 <Electronically signed by Mariam camarena PINEAPPLE PLANTATION MANAGER PINEAPPLE PLANTATION MANAGER-C> Date _ Mariam Xiao PINEAPPLE PLANTATION MANAGER PINEAPPLE PLANTATION MANAGER-C Cosigner Signature: Date (if applicable) CC: ~ [facility] Work Phone: 1(452) 207-648006-09-2025 Evaluation note* Diagnosis Onset Date Resolution Status Admit Date Cigarette nicotine dependenc e with withdrawal acute December 22, 2024 2 :34pm Tobacco abuse chronic December 22, 025 2:34pm Encounter for routine gynecological examination noneactive January 142024 3:08pm [facility] Work Phone: 1(780) 797-500706-09-2025 Evaluation note* Diagnosis Onset Date Resolution Status Admit Date Cigarette nicotine dependenc e with withdrawal acute December 22, 2024 2 :34pm Tobacco abuse chronic December 22, 025 2:34pm Encounter for routine gynecological examination noneactive January 142024 3:08pm Preventative health care acute February 18, 2025 11:06am Tobacco abuse, in remission acute February 18, 2025 11:06am [facility] Work Phone: 1(397) 171-473912-07-2023 [facility]* Diagnosis Onset Date Resolution Status Health care maintenance acut e Hyperlipidemia acute Essential hypertension chron ic Tobacco abuse chronic [facility] Work Phone: Evaluation note* Diagnosis Onset Date Resolution Status Health care maintenance acut e Essential hypertension chron ic [facility] Work Phone: Evaluation note* Diagnosis Onset Date Resolution Status Encounter for screening for malignant neoplasm of colo n acute [facility] Work Phone: evaluation note* Diagnosis Onset Date Resolution Status Admit Date Tobacco abuse chronic December 22 2:34pm [facility] Work Phone: History and physical note Author Edinson Finley [facility] June 21, 2023 7:08am Note Date/Time June 21, 2023 7 :09am [facility] Medical Records Department [address] [place] [address] History & Physical Exam 06/21/23 0702 MR#: [id number] Acct: [id number] Name: MAIDA WYATT Rep #:[id number] 0 : 1975 48 From: Edinson Finley DO PCP: Dr. Melisa Barfield MD Status:R [facility] Location: [place] [address] HPI - General General Date of Admission: 06/21/23 Date of Service: 06/21/23 Chief Complaint: Screening colonoscopy HPI Narrative MAIDA WYATT, is a 48 F who presents today for screening colonoscopy. She has never had a colonoscopy in the past. She does not have abdominal pain. She nothave any nausea, vomiting or diarrhea. She has past medical history of mild hypertension and mild hyperlipidemia. Otherwise she is in very good health. She does have a family history of colon cancer. [facility] Medical History (Updated 06/18/23 @ 09:58 by Myles Briceno) Abnormal Pap smear of cervix Colon cancer screening Essential hypertension Fracture of finger of left hand Frequent sinus infections Hyperlipidemia Overweight (BMI 25.0-29.9) Smoker Tobacco abuse Vision problems Wears glasses Home Medications loratadine 10 mg tablet 10 mg PO DAILY 09/29/19 [History Last Taken Unknown] multivitamin,[id number] (Complete Multivitamin tablet) 1 tab PO DAILY 03/01/20 [History Last Taken Unknown] Allergy/AdvReac Type Severity Reaction Status Date / Time No Known Allergies Allergy Verified 06/18/23 09:50 Family History (Updated 06/05/23 @ 13:56 by Verna Tabares) Mother Cancer lung,uterine Anxiety Depression Diabetes Hypertension CVA (cerebral vascular accident) Uterine cancer 30s Father Hypertension Grandfather Cancer Myocardial infarction Heart disease Colon cancer Surgical History H/O LEEP History of knee surgery History of tonsillectomy Social History Smoking Status: Current every day smoker tobacco type: cigarettes alcohol intake: current alcohol intake frequency: holidays/special occasions only details: socially substance use type: does not use caffeine: Yes what type of physical activity do you participate in: walking, aerobics and weight training frequency: 3-4 times per week seatbelt use: always do you feel safe at home: Yes additional social history: [employer] ROS Review of Systems ROS Unobtainable: other Constitutional Constitutional: Denies fatigue, fever(s), poor appetite, weight gain or weight loss ENT HEENT: Denies mouth lesions Cardiovascular Cardiovascular: Denies abdominal bloating, abdominal edema or abdominal pain Respiratory/Chest Respiratory/Chest: Denies change in mental status, change in phlegm color, chestcongestion or chest tightness Gastrointestinal Gastrointestinal: Denies belching, bloating, change in bowel habits, change in stool character, chewing difficulty, coffee ground emesis, constipation, cramping, diarrhea, dyspepsia, dysphagia, early satiety, excessive flatus, fecalincontinence, heartburn, hematemesis, hematochezia, hemorrhoids, loose stools, melena, nausea, odynophagia, rectal bleeding, tenesmus, vomiting or weight changes Genitourinary Genitourinary: Denies abdominal discomfort, burning urination or itching Musculoskeletal Musculoskeletal: Reports as per HPI; Denies muscle weakness or myalgias Integumentary Integumentary: Denies jaundice Neurologic Neurologic: Denies lack of coordination or weakness Psychiatric Psychiatric: Denies confusion, depression, memory loss, mood swings, paranoia orsuicidal ideation Endocrine Endocrinology: Denies systems reviewed and no addt'l complaints, except as documented Hematologic/Lymphatic Hematologic/Lymphatic: Denies anemia, easy bleeding, easy bruising or lymphadenopathy Allergic/Immunologic Allergic/Immunologic: Denies systems reviewed and no addt'l complaints, except as documented Vital Signs Vital Signs Vital Signs: 06/21/23 06:20 06/21/23 06:20 Temperature 97.6 F L Temperature Source Temporal Pulse Rate 84 Respiratory Rate 18 Respiratory Pattern Normal Blood Pressure 112/73 Blood Pressure Mean 86 Blood Pressure Source Monitor Blood Pressure Position Sitting Pulse Ox 99 Oxygen Delivery Method Room Air Weight Weight: 151 lb 6.4 oz Body Mass Index (BMI) 25.9 Physical Exam Const alert General Appearance: cooperative Orientation / Consciousness: oriented to person HEENT hearing grossly normal bilaterally Head and Scalp: normal to inspection Face and Sinus: face symmetric Nose: external nose normal Mouth: oral and palatal mucosa normal Eyes conjunctivae normal General Eye: normal appearance of both eyes Neck full ROM General: normal visual inspection Lymph Lymphatic: no lymphadenopathy noted Chest inspection of chest normal and palpation of chest normal Chest: symmetrical chest wall rise Resp normal respiratory effort Effort and Inspection: able to speak in complete sentences Cardio regular rate GI non-distended Percussion: normal to percussion Rectal Exam: deferred Neuro Speech: speech normal Gait (Neuro): normal gait Results Lab / Micro Data Labs: Laboratory Results - last 24 hr 06/21/23 05:58: Urine Test Negative Assessment & Plan Assessment/Plan (1) Encounter for screening for malignant neoplasm of colon: PLAN: She was explained alternatives, risk, benefits including not withstanding bleeding, infection, sepsis, perforation, need for emergent surgery and . She will have an ASA of 2. 06/21/23 0708 <Electronically signed by Edinson Finley DO> Cosigner Signature (if applicable): CC: Dr. Melisa Barfield MD; Edinson Finley DO~ Signed [facility] Work Phone: Reason for referral (narrative)No reason for referral [facility] Work Phone: Summary Purpose Family History Relationship Condition Age at Onset Recorded Date/T arron mother Malignant neoplasm Unknown Anxiety Unknown Depression Unknown Diabetes mellitus Unknown Hypertension Unknown Cerebrovascular accident (CVA) Unknown Malignant neoplasm of uterus Unknown father Hypertension Unknown grandfather Malignant neoplasm Unknown Malignant neoplasm of colon Unknown Myocardial infarction Unknown Cardiac disease Unknown Relationship Condition Age at Onset Recorded Date/T arron mother Malignant neoplasm Unknown Anxiety Unknown Depression Unknown Diabetes mellitus Unknown Hypertension Unknown Cerebrovascular accident (CVA) Unknown Malignant neoplasm of uterus Unknown father Hypertension Unknown grandfather Malignant neoplasm Unknown Myocardial infarction Unknown Cardiac disease Unknown Malignant neoplasm of colon Unknown Advance Directives Documents on File Type Date Recorded 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 Fixtures 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 Composing Machine Operator/Tender Advance Directive Response Recorded Date/ Time Living Will No June 18 9:51am Power of Composing Machine Operator/Tender No June 18, 2023 9:51am Reason for Referral Status Reason Specialty Diagnoses / Procedures Referred By Contact Referred To Contact [facility] Required Lab Diagnoses Family history of uterine cancer Procedures Genetic Sendout: Common Hereditary [place] [address] Assessments Diagnosis Family history of uterine cancer Family history of malignant neoplasm of genital organ, other Chief Complaint and Reason for Visit Chief Complaint 6 M FU Reason for Visit Health care maintena nce Hyperlipidemia Essential hypertension Tobacco abuse Chief Complaint 6 M FU SCREENING Reason for Visit Health care maintena nce Hyperlipidemia Essential hypertension Tobacco abuse Chief Complaint 6 M FU SCREENING Reason for Visit Health care maintena nce Essential hypertension Chief Complaint Amb Documentation Reason for Visit Encounter for screen ing for malignant neoplasm of colon Chief Complaint Admit Date QUIT SMOKING December 22, 2024 2:34p m Reason for Visit Admit Date Tobacco abuse December 22, 2024 2:34p m Chief Complaint Admit Date QUIT SMOKING December 22, 2024 2:34p m 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) February 10, 2025 3:08 pm Reason for Visit Admit Date Cigarette nicotine dependence with withd cornelia December 22, 2024 2:34pm Tobacco abuse December 22, 2024 2:34p m Encounter for routine gynecological exam ination February 10, 2025 3:08pm Chief Complaint Admit Date QUIT SMOKING December 22, 2024 2:34p m 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) February 10, 2025 3:08 pm screen for breast cancer February 16 2:40pm YEARLY February 18, 2025 11: 06am Reason for Visit Admit Date Cigarette nicotine dependence with withd cornelia December 22, 2024 2:34pm Tobacco abuse December 22, 2024 2:34p m Encounter for routine gynecological exam ination February 10, 2025 3:08pm Preventative health care February 18 11:06am Tobacco abuse, in remission February 18, 2025 11:06am Additional Source Comments INFORMATION SOURCE (unrecogn ized section and content) DATE CREATED AUTHOR 08/19/2019 [facility] DATE CREATED AUTHOR AUTHOR'S ORGANIZ ATION 02/16/2025 [facility] Reason for Visit (unrecogniz ed section and content) Status Reason Specialty Diagnoses / Procedures Referred By Contact Referred To Contact [facility] Required Lab Diagnoses Family history of uterine cancer Procedures Genetic Sendout: Common Hereditary Cancers Panel [place] [address] Goals (unrecognized section and content) Goals may be documented in a n alternate sectionGoals may be documented in an alternate sectionGoals may be documented in an alternate sectionGoals may be documented in an alternate sectionGoals may be documented in an alternate sectionGoals may be documented in an alternate sectionGoals may be documented in an alternate sectionGoals may be documented in an alternate section Care Teams (unrecognized sec tion and content) Team Status: Active Member Role Status Dates Monae Washington Family Provider Active Team Status: Inactive Member Role Status Dates Dr. Melisa Barfield MD Primary Care Elver dorman Attending Provider, Referring Provider Active Team Status: Active Member Role Status Dates Monae Washington Family Provider Active Dr. Melisa Barfield MD Primary Care Provider Active Team Status: Active Member Role Status Dates Dr. Melisa Barfield MD Primary Care Elver dorman Attending Provider, Referring Provider Active Team Status: Active Member Role Status Dates Dr. Melisa Barfield MD Primary Care Provider Active Verna Tabares Attending Provider Active Team Status: Active Member Role Status Dates Dr. Melisa Barfield MD Primary Care Provider, Refer ring Provider Active Dr. Neves Friend , DO Attending Provider, Other Prov ider Active Team Status: Inactive Member Role Status Dates Dr. Melisa Barfield MD Primary Care Provider, Refer ring Provider Active Dr. Edinson Finley DO Attending Provider Active Team Status: Inactive Member Role Status Dates Dr. Melisa Barfield MD Primary Care Provider Active Start: December 22, 2024 End: December 22, 2024 Dr. Melisa Barfield MD Referring Provider Active Start: December 22, 2024 End: December 22, 2024 Malissa Garcia NP-C Attending Provider Active Start: December 22, 2024 End: December 22, 2024 Team Status: Active Member Role/Relationship Status Dates Dr. Melisa Barfield MD Primary Care Provider Active Team Status: Inactive Member Role/Relationship Status Dates Dr. Melisa Barfield MD Primary Care Provider Active Start: December 22, 2024 End: December 22, 2024 Dr. Melisa Barfield MD Referring Provider Active Start: December 22, 2024 End: December 22, 2024 Malissa Garcia NP-C Attending Provider Active Start: December 22, 2024 End: December 22, 2024 Team Status: Inactive Member Role/Relationship Status Dates Dr. Melisa Barfield MD Primary Care Provider Active Start: February 10, 2025 End: February 10, 2025 Dr. Melisa Barfield MD Referring Provider Active Start: February 10, 2025 End: February 10, 2025 Mariam Xiao PINEAPPLE PLANTATION MANAGER, PINEAPPLE PLANTATION MANAGER-C Attending Provider Active Start: February 10, 2025 End: February 10, 2025 Team Status: Active Member Role/Relationship Status Dates Dr. Melisa Barfield MD Primary Care Provider Active Start: February 10, 2025 Mariam Xiao PINEAPPLE PLANTATION MANAGER, PINEAPPLE PLANTATION MANAGER-C Attending Provider Active Start: February 10, 2025 Team Status: Active Member Role/Relationship Status Dates Dr. Melisa Barfield MD Primary Care Provider Active Start: February 16, 2025 Mariam Xiao PINEAPPLE PLANTATION MANAGER, PINEAPPLE PLANTATION MANAGER-C Attending Provider Active Start: February 16, 2025 Mariam Xiao PINEAPPLE PLANTATION MANAGER, PINEAPPLE PLANTATION MANAGER-C Referring Provider Active Start: February 16, 2025 Team Status: Inactive Member Role/Relationship Status Dates Dr. Melisa Barfield MD Primary Care Provider Active Start: February 18, 2025 End: February 18, 2025 Dr. Melisa Barfield MD Attending Provider Active Start: February 18, 2025 End: February 18, 2025 Dr. Melisa Barfield MD Referring Provider Active Start: February 18, 2025 End: February 18, 2025 Team Status: Active Member Role/Relationship Status Dates Dr. Melisa Barfield MD Primary Care Provider Active Start: February 18, 2025 Dr. Melisa Barfield MD Attending Provider Active Start: February 18, 2025 Dr. Melisa Barfield MD Referring Provider Active Start: February 18, 2025 Team Status: Inactive Member Role/Relationship Status Dates Dr. Melisa Barfield MD Primary Care Provider Active Start: February 10, 2025 End: February 10, 2025 RAZIA Nagel NPC Attending Provider Active Start: February 10, 2025 End: February 10, 2025 FOR RECORDS PERTAINING TO PATIENTS WHO ARE OR HAVE BEEN ENROLLED IN A CHEMICAL DEPENDENCY/SUBSTANCEABUSE PROGRAM, SOME INFORMATION MAY BE OMITTED. This clinical summary was aggregated from multiple sources. Caution should be exercised in using it in the provision of clinical care. This summary normalizes information from multiple sources, and as a consequence, information in this document may materially change the coding, format and clinical context of patient data. In addition, data may be omitted in some cases. CLINICAL DECISIONS SHOULD BE BASED ON THE PRIMARY CLINICAL RECORDS. [facility] provides no warranty or guarantee of the accuracy or completeness of information in this document.
== END | disposition home or self-care (01) ==
LOC: BIMLAB 12:01
PROVIDERS: PCP Internal Medicine; Referring Provider Internal Medicine; Visit Provider Internal Medicine
DX: Z00.00 Encounter for general adult medical examination without abnormal findings (principal)
CPT/HCPCS: 36415; 80053; 80061; 85025